=== PATIENT | male | born 1975 | race Caucasian/White ===

== ENCOUNTER 2018-06-05 07:56 | Observation (INO) | payer SELFPAY ==
[2018-06-05] MEDS ORDERED: ASPIRIN 81 MG TABLET, CHEWABLE PO ONE (08:22)
--- NOTE | 2018-06-05 08:38 | ER Document Report ---
ED General - General Mode of Arrival: Ambulatory Information source: Patient TRAVEL OUTSIDE OF THE [place] IN LAST 30 DAYS: No <ARLETH WESLEY - Last Filed: 06/05/18 09:26> <BERTRAM MCPHERSON - Last Filed: 06/05/18 15:17> - General Chief Complaint: Chest Pain Stated Complaint: CHEST PAIN, ARM TINGLING, SHORTNESS OF BREATH Time Seen by Provider: 06/05/18 08:28 Notes: Patient is a 43 year old male with type IIb von Willebrand's disease presents to the emergency department complaining of chest pain with associated symptoms of shortness of breath and left arm tingling onset around 0300 this morning. Patient states the pain is primarily located in the sternal area that radiates into the left side of his chest, left arm and back. Patient describes the pain as a burning, throbbing sensation and further states he has never had pain like this before. Patient states the pain is exacerbated with deep breathing. He also complains of "seeing stars" in his vision. (ARLETH WESLEY) Late history from the patient is that he had an episode of fluttering in his chest and was seen at [facility]. He states this happened a couple of years ago, right after he was seen here for an abscess on his leg. That was actually in 2012, 5 years ago. He reports at that time he was hospitalized, was put inside a machine to look at his heart and had an exercise stress test done. He states that the time his blood pressure shot way up and was in the 250/150 range. He states he was discharged with some blood pressure medications, that he tried but never followed up. I suspect he has been running very high blood pressures now for the last 4-5 years without treatment. He also smokes 1-1/2 packs/day. His blood pressure today when he first came in was 205/128. The patient was not given aspirin, Plavix, or any other antiplatelet type medications due to his history of von Willebrand's type IIb. (BERTRAM MCPHERSON) - Related Data Allergies/Adverse Reactions: aspirin [Aspirin] Allergy (Verified 12/29/12 22:34) Past Medical History - General Information source: Patient - Social History Smoking Status: Current Every Day Smoker Cigarette use (# per day): Yes - 1-1.5 PPD Chew tobacco use (# tins/day): No Smoking Education Provided: No Frequency of alcohol use: Rare Family History: None Past Surgical History: Reports: Hx Oral Surgery - Immunizations Hx Diphtheria, Pertussis, Tetanus Vaccination: Yes <ARLETH WESLEY - Last Filed: 06/05/18 09:26> Review of Systems - Review of Systems Constitutional: No symptoms reported EENT: See HPI Cardiovascular: See HPI, Chest pain Respiratory: See HPI, Hurts to breathe Gastrointestinal: No symptoms reported Genitourinary: No symptoms reported Male Genitourinary: No symptoms reported Musculoskeletal: No symptoms reported Skin: No symptoms reported Hematologic/Lymphatic: No symptoms reported Neurological/Psychological: See HPI, Tingling - left arm -: Yes All other systems reviewed and negative <ARLETH WESLEY - Last Filed: 06/05/18 09:26> Physical Exam <ARLETH WESLEY - Last Filed: 06/05/18 09:26> <BERTRAM MCPHERSON - Last Filed: 06/05/18 15:17> - Vital signs Vitals: Pulse Ox 94 06/05/18 08:00 - Notes Notes: GENERAL: Alert, interacts well, moaning in bed. No acute distress. HEAD: Normocephalic, atraumatic. EYES: Pupils equal, round, and reactive to light. Extraocular movements intact. ENT: Oral mucosa moist, tongue midline. NECK: Full range of motion. Supple. Trachea midline. LUNGS: Right anterior chest wall to palpation, left anterior chest wall to palpation. R > L. Clear to auscultation bilaterally, no wheezes, rales, or rhonchi. No respiratory distress. HEART: Regular rate and rhythm. No murmurs, gallops, or rubs. ABDOMEN: Soft. RUQ tenderness palpation, epigastric more tender to palpation, does not reproduce chest pain radiating into his back. Non-distended. Bowel sounds present in all 4 quadrants. EXTREMITIES: Moves all 4 extremities spontaneously. No edema, radial and dorsalis pedis pulses 2/4 bilaterally. No cyanosis. NEUROLOGICAL: Alert and oriented x3. Normal speech. PSYCH: Normal affect, normal mood. SKIN: Warm, dry, normal turgor. No rashes or lesions noted. (ARLETH WESLEY) Course <ARLETH WESLEY - Last Filed: 06/05/18 09:26> - Laboratory Result Diagrams: 06/05/18 08:37 06/05/18 08:37 - Diagnostic Test Radiology reviewed: Image reviewed, Reports reviewed - Chest x-ray is unremarkable. CTA chest is unremarkable. - EKG Interpretation by Me EKG shows normal: Sinus rhythm, [place], Intervals, QRS Complexes. abnormal: ST-T Waves - ST elevation suggesting early repolarization pattern Rate: Normal - 86 Rhythm: NSR Voltage: Consistant with LVH When compared to previous EKG there are: Previous EKG unavailable - Consults Dr. Serrano Time consulted: 14:55 Consulted provider: will come to ER <BERTRAM MCPHERSON - Last Filed: 06/05/18 15:17> - Re-evaluation Re-evalutation: 06/05/18 08:49 Patient was given 1 sublingual nitroglycerin at 0841, within about 3 minutes he noted that the pain in the back was gone but does continue to have the anterior and substernal chest discomfort. I did lift the back of the bed up to about 45 degrees as he is a quite large person to see if that would help him. It did not really change his discomfort so a second nitroglycerin was given at 0845. The second nitroglycerin gave a little more relief according to the patient. He indicates that it is still present but considerably better than when he first came in. He will have normal saline running now and get Lopressor 5 mg IV. 06/05/18 09:42 A repeat 12-lead done after the above medications, shows that the patient has now inverted the T waves in lead III and seen the inverted T's in aVL have now gone positive. (BERTRAM MCPHERSON) - Vital Signs Vital signs: Temp Pulse Resp BP Pulse Ox 97.7 F 84 18 143/79 H 94 06/05/18 08:03 06/05/18 08:03 06/05/18 14:36 06/05/18 14:36 06/05/18 14:36 - Laboratory Laboratory results interpreted by me: 06/05/18 06/05/18 08:37 08:37 WBC 11.4 H RBC 6.01 H MCH 26.9 L Absolute Neutrophils 8.5 H D-Dimer 0.91 H Critical Care Note - Critical Care Note Total time excluding time spent on procedures (mins): 40 <BERTRAM MCPHERSON - Last Filed: 06/05/18 15:17> Discharge <ARLETH WESLEY - Last Filed: 06/05/18 09:26> - Discharge Admitting Provider: Hospitalist Unit Admitted: IMCU <BERTRAM MCPHERSON - Last Filed: 06/05/18 15:17> - Discharge Clinical Impression: Von Willebrand disease type 2b Chest pain Qualifiers: Chest pain type: unspecified Qualified Code(s): R07.9 - Chest pain, unspecified High blood pressure Qualifiers: Hypertension type: essential hypertension Qualified Code(s): I10 - Essential ( primary) hypertension Condition: Stable Disposition: ADMITTED OBSERVATION Referrals: LOCALMD,NO [NO LOCAL MD] - Follow up as needed Scribe Attestation: 06/05/18 09:25 I personally performed the services described in the documentation, reviewed and edited the documentation which was dictated to the scribe in my presence, and it accurately records my words and actions. (BERTRAM MCPHERSON) Scribe Documentation - Scribe Written by Scribe:: Narendra Jiménez, 06/05/2018 08:48 acting as scribe for :: Wayne <ARLETH WESLEY - Last Filed: 06/05/18 09:26>
[2018-06-05] MEDS ORDERED: ONDANSETRON HCL INJ/PF 4 MG/2 ML SDV IV ONE (08:39)
[2018-06-05] MEDS ORDERED: MORPHINE SULFATE 10 MG/ML INJ IV ONE (08:39)
[2018-06-05] MEDS ORDERED: FAMOTIDINE INJ/PF 20 MG/2 ML SDV IV ONE (08:39)
[2018-06-05] MEDS ORDERED: NORMAL SALINE 1000 ML 1,000 ML IV ONE (08:48)
[2018-06-05] MEDS ORDERED: METOPROLOL TARTRATE PF/INJ 5 MG/5 ML SDV IV ONE ×2 (08:48→10:26)
--- NOTE | 2018-06-05 09:31 | RADIOLOGY REPORT (SQ) ---
EXAM DESCRIPTION: CHEST SINGLE VIEW COMPLETED DATE/TIME: 06/05/2018 8:56 am REASON FOR STUDY: cp COMPARISON: None. EXAM PARAMETERS: NUMBER OF VIEWS: One view. TECHNIQUE: Single frontal radiographic view of the chest acquired. RADIATION DOSE: NA LIMITATIONS: None. FINDINGS: LUNGS AND PLEURA: No opacities, masses or pneumothorax. No pleural effusion. MEDIASTINUM AND HILAR STRUCTURES: No masses. Contour normal. HEART AND VASCULAR STRUCTURES: Heart normal in size. Normal vasculature. BONES: No acute findings. HARDWARE: None in the chest. OTHER: No other significant finding. IMPRESSION: NO ACUTE RADIOGRAPHIC FINDING IN THE CHEST. TECHNICAL DOCUMENTATION: JOB ID: [id number] [employer]- All Rights Reserved Reading location - IP/workstation name: [email or web address]
[2018-06-05] MEDS ORDERED: NITROGLYCERIN 2% OINTMENT 1 GM PACKET TP ONE (09:39)
[2018-06-05 09:45] LABS: ABSOLUTE BASOPHILS # (AUTO) 0.1 10^3/uL (0.0-0.2); ABSOLUTE EOSINOPHILS # (AUTO) 0.3 10^3/uL (0.0-0.6); ABSOLUTE LYMPHOCYTES (AUTO) 1.9 10^3/uL (0.5-4.7); ABSOLUTE MONOCYTES (AUTO) 0.7 10^3/uL (0.1-1.4); ABSOLUTE NEUT (AUTO) 8.5 10^3/uL (1.7-8.2); BASOPHILS % (AUTO) 0.7 % (0-2); EOSINOPHILS % (AUTO) 2.2 % (0-6); HEMOGLOBIN 16.2 g/dL (13.5-17.0); LYMPHOCYTES % (AUTO) 16.8 % (13-45); MEAN CORPUSCULAR HEMOGLOBIN 26.9 pg (27.0-33.4); MEAN CORPUSCULAR VOLUME 82 fl (80-97); MONOCYTES % (AUTO) 6.3 % (3-13); PLATELET COUNT 193 10^3/uL (150-450); RED BLOOD COUNT 6.01 10^6/uL (4.35-5.55); RED CELL DISTRIBUTION WIDTH 13.7 % (11.5-14.0); TOTAL CELLS COUNTED % (AUTO) 100 %; WHITE BLOOD COUNT 11.4 10^3/uL (4.0-10.5)
[2018-06-05 10:04] LABS: ALANINE AMINOTRANSFERASE 54 U/L (21-72); ALBUMIN 4.4 g/dL (3.5-5.0); ALKALINE PHOSPHATASE 62 U/L (38-126); ANION GAP 12 (5-19); ASPARTATE AMINO TRANSFERASE 36 U/L (17-59); BILIRUBIN,DIRECT 0.3 mg/dL (0.0-0.4); BILIRUBIN,TOTAL 0.5 mg/dL (0.2-1.3); BLOOD UREA NITROGEN 11 mg/dL (7-20); CALCIUM 9.7 mg/dL (8.4-10.2); CARBON DIOXIDE 26 mmol/L (22-30); CHLORIDE 104 mmol/L (98-107); CREATINE KINASE 136 U/L (55-170); GLUCOSE 100 mg/dL (75-110); POTASSIUM 4.3 mmol/L (3.6-5.0); SODIUM 142.1 mmol/L (137-145); TOTAL PROTEIN 7.4 g/dL (6.3-8.2)
[2018-06-05 10:16] LABS: CREATINE KINASE MB 1.24 ng/mL (<4.55)
[2018-06-05 10:18] LABS: TROPONIN I < 0.012 ng/mL
--- NOTE | 2018-06-05 14:12 | RADIOLOGY REPORT (SQ) ---
EXAM DESCRIPTION: CTA CHEST COMPLETED DATE/TIME: 06/05/2018 1:50 pm REASON FOR STUDY: Pleuritic chest pain, elevated d-dimer COMPARISON: None. TECHNIQUE: CT scan of the chest performed using helical scanning technique with dynamic intravenous contrast injection. Images reviewed with lung, soft tissue and bone windows. Reconstructed coronal and sagittal MPR images reviewed. Additional 3 dimensional post-processing performed to develop Maximal Intensity Projection images (NH P). All images stored on PACS. All CT scanners at this facility use dose modulation, iterative reconstruction, and/or weight based d osing when appropriate to reduce radiation dose to as low as reasonably achievable (ALARA). [facility]: Dose Right [facility]: CareDose [facility]: Dose Right [facility]: Teradose 4D [facility]: Godengo CONTRAST TYPE AND DOSE: contrast/concentration: Isovue 350.00 mg/ml; Total Contrast Delivered: 79.0 ml; Total Saline Delivered: 90.0 ml Contrast bolus optimized for the pulmonary arteries. Not diagnostic for the aorta. RENAL FUNCTION: GFR > 60. RADIATION DOSE: CT Rad equipment meets quality standard of care and radiation dose reduction techniq ues were employed. CTDIvol: 15.5 - 26.3 mGy. DLP: 592 mGy-cm. . LIMITATIONS: Motion. FINDINGS: LUNGS AND PLEURA: No masses, infiltrates, or pneumothorax. No pleural effusions or pleura l calcifications. AORTA AND GREAT VESSELS: No aneurysm. Contrast bolus not optimized for the aorta. HEART: No pericardial effusion. No significant coronary artery calcifications. PULMONARY ARTERIES: No emboli visualized in the main pulmonary arteries or the segmental branches. HILAR AND MEDIASTINAL STRUCTURES: Small hilar nodes measuring up to about 1 cm. No bulky adenopathy. HARDWARE: None in the chest. UPPER ABDOMEN: No significant findings. Limited exam. THYROID AND OTHER SOFT TISSUES: No masses. No adenopathy. BONES: No acute or significant finding. 3D MIPS: Confirm above findings. OTHER: No other significant finding. IMPRESSION: No PE. No acute findings. COMMENT: Quality ID # [id number]: Final reports with documentation of one or more dose reduction techniques (e.g., Automated exposure control, adjustment of the mA and/or kV according to patient size, use of iterative reconstruction technique) TECHNICAL DOCUMENTATION: JOB ID: [id number] [employer]- All Rights Reserved Reading location - IP/workstation name: [email or web address]
[2018-06-05] MEDS ORDERED: REGADENOSON INJ 0.4 MG/5 ML DISP.SYRIN IV ONE (14:53)
[2018-06-05] MEDS ORDERED: NITROGLYCERIN 0.4 MG/TAB 25 TAB/BOTTLE SL PRN (16:52)
[2018-06-05] MEDS ORDERED: MORPHINE SULFATE 10 MG/ML INJ IV PRN (16:52)
--- NOTE | 2018-06-05 17:02 | PDOC H&P ---
History of Present Illness Admission Date/PCP: 06/05/18 15:43 History of Present Illness: MARK BOYD is a 43 year old male presents to the emergency room due to acute onset of very severe throbbing middle chest pain started 3 AM today and woke him up from sleep. Pain is associated with "seeing stars" and shortness of breath. Also associated with tingling and numbness in his left arm and referred to his back. Pain increases with deep breathing. Pain improved with nitroglycerin and morphine in the emergency room. Apparently the patient was tachycardic and hypertensive and received beta-adriana treatment in the emergency room and now he is normotensive and in sinus rhythm. Patient went on to go to work at 7:00 and continue to work till 8:00 before 1 of his coworkers asking to go to the emergency room since his pain did not improve or subside. In the emergency room he developed a different kind of pain that is located in the left lower chest and was cramping like and this also resolved now. Past Medical History Hematology History Note: Von Willebrand's disease type IIB Past Surgical History Past Surgical History: Reports: None Social History Smoking Status: Current Every Day Smoker Family History Family History: Von Willebrand disease Parental Family History Reviewed: Yes Children Family History Reviewed: Yes Sibling(s) Family History Reviewed.: Yes Medication/Allergy Allergies/Adverse Reactions: aspirin [Aspirin] Allergy (Verified 12/29/12 22:34) Review of Systems All systems: reviewed and no additional remarkable complaints except as stated Physical Exam Vital Signs: Temp Pulse Resp BP Pulse Ox 97.7 F 84 19 156/85 H 94 06/05/18 08:03 06/05/18 08:03 06/05/18 16:31 06/05/18 16:31 06/05/18 16:31 General appearance: PRESENT: no acute distress, cooperative, obese Head exam: PRESENT: atraumatic, normocephalic Eye exam: PRESENT: EOMI, PERRLA. ABSENT: conjunctival injection Mouth exam: PRESENT: moist, neck supple Throat exam: ABSENT: post pharyngeal erythema, tonsillar exudate Neck exam: ABSENT: meningismus, tenderness, tracheostomy Respiratory exam: PRESENT: wheezes. ABSENT: accessory muscle use, crackles Cardiovascular exam: PRESENT: RRR. ABSENT: diastolic murmur, systolic murmur Pulses: PRESENT: normal carotid pulses GI/Abdominal exam: PRESENT: normal bowel sounds, soft. ABSENT: ascites, tenderness Rectal exam: PRESENT: deferred Extremities exam: ABSENT: joint swelling, pedal edema Musculoskeletal exam: ABSENT: deformity, dislocation, tenderness Neurological exam: PRESENT: alert, awake, oriented to person, oriented to place , oriented to time, oriented to situation Psychiatric exam: PRESENT: agitated, anxious Results Impressions: Chest X-Ray 06/05/18 08:22 IMPRESSION: NO ACUTE RADIOGRAPHIC FINDING IN THE CHEST. Chest/Abdomen CTA 06/05/18 13:03 IMPRESSION: No PE. No acute findings. Assessment & Plan - Diagnosis (1) Chest pain Qualifiers: Chest pain type: unspecified Qualified Code(s): R07.9 - Chest pain, unspecified Is this a current diagnosis for this admission?: Yes Plan: Admit for observation to telemetry Check serial troponins and serial EKG He received aspirin in the emergency room Nitroglycerin morphine as needed Check stress test in the morning (2) High blood pressure Qualifiers: Hypertension type: essential hypertension Qualified Code(s): I10 - Essential (primary) hypertension Is this a current diagnosis for this admission?: Yes Plan: Continue to monitor blood pressure (3) Von Willebrand disease type 2b Is this a current diagnosis for this admission?: Yes Plan: No bleeding currently
--- NOTE | 2018-06-05 21:28 | EKG REPORT ---
SEVERITY:- ABNORMAL ECG - SINUS RHYTHM CONSIDER LEFT VENTRICULAR HYPERTROPHY ST ELEV, PROBABLE NORMAL EARLY REPOL PATTERN : Confirmed by: Niki Carrillo MD 05-Jun-2018 21:27:18
[2018-06-06 05:01] LABS: CHOLESTEROL 139.84 mg/dL (0-200); TRIGLYCERIDES 160 mg/dL (<150)
[2018-06-06 05:12] LABS: DIRECT LDL 93 mg/dL (<100)
--- NOTE | 2018-06-06 10:04 | EKG REPORT ---
SEVERITY:- NORMAL ECG - SINUS RHYTHM : Confirmed by: Niki Carrillo MD 06-Jun-2018 10:02:32
--- NOTE | 2018-06-06 10:04 | EKG REPORT ---
SEVERITY:- NORMAL ECG - SINUS RHYTHM : Confirmed by: Niki Carrillo MD 06-Jun-2018 10:02:35
[2018-06-06 14:27] VITALS: BP 170/96
--- NOTE | 2018-06-06 15:18 | PDOC DISCHARGE SUMMARY ---
General - Admit/Disc Date/PCP Admission Date/Primary Care Provider: 06/05/18 15:43 Discharge Date: 06/06/18 - Discharge Diagnosis (1) Chest pain Is this a current diagnosis for this admission?: Yes (2) High blood pressure Is this a current diagnosis for this admission?: Yes (3) Von Willebrand disease type 2b Is this a current diagnosis for this admission?: Yes - Additional Information Discharge Diet: As Tolerated Discharge Activity: Activity As Tolerated Home Medications: No Home Medications 06/05/18 History of Present Illness History of Present Illness: MARK BOYD is a 43 year old male presents to the emergency room due to acute onset of very severe throbbing middle chest pain started 3 AM today and woke him up from sleep. Pain is associated with "seeing stars" and shortness of breath. Also associated with tingling and numbness in his left arm and referred to his back. Pain increases with deep breathing. Pain improved with nitroglycerin and morphine in the emergency room. Apparently the patient was tachycardic and hypertensive and received beta-adriana treatment in the emergency room and now he is normotensive and in sinus rhythm. Patient went on to go to work at 7:00 and continue to work till 8:00 before 1 of his coworkers asking to go to the emergency room since his pain did not improve or subside. In the emergency room he developed a different kind of pain that is located in the left lower chest and was cramping like and this also resolved now. Hospital Course Hospital Course: (1) Chest pain Admitted for observation to telemetry Normal serial troponins and serial EKG He received aspirin in the emergency room Patient ordered nitroglycerin morphine as needed Stress test was negative and was cleared by cardiology for discharge (2) elevated blood pressure readings Need to follow-up with his primary care physician after discharge (3) Von Willebrand disease type 2b No bleeding currently Physical Exam Vital Signs: Temp Pulse Resp BP Pulse Ox 99.5 F 88 16 170/96 H 96 06/06/18 14:11 06/06/18 14:11 06/06/18 14:11 06/06/18 14:11 06/06/18 14:11 Intake & Output 06/05/18 06/06/18 06/07/18 06:59 06:59 06:59 Intake Total 237 450 Output Total 0 Balance 237 450 Weight 334 lb 10.587 oz Results Laboratory Results: 06/06/18 04:33 Triglycerides 160 H Cholesterol 139.84 LDL Cholesterol Direct 93 VLDL Cholesterol 32.0 H HDL Cholesterol 33 L 06/05/18 06/05/18 06/06/18 18:50 22:05 04:33 Troponin I < 0.012 < 0.012 < 0.012 Impressions: Chest X-Ray 06/05/18 08:22 IMPRESSION: NO ACUTE RADIOGRAPHIC FINDING IN THE CHEST. Chest/Abdomen CTA 06/05/18 13:03 IMPRESSION: No PE. No acute findings. Qualifiers - * PATIENT BEING DISCHARGED WITH ANY OF THE FOLLOWING DIAGNOSIS: No
--- NOTE | 2018-06-06 21:07 | DRAGON STRESS TEST REPORT ---
Intravenous Lexiscan Cardiolite stress test using single photon emmision computerized tomography. Date of procedure: 06/06/2018.Ordering Provider: .Patient's status: Inpatient. Indication: Chest pain. Coronary risk factors: Age, hypertension, and tobacco abuse disorder. Resting EKG: Sinus Rhythm. Within Normal Limits Stress EKG: No changes of ischemia. The patient had no chest pain or discomfort, and there were no arrhythmias seen. Reason for termination: Protocol. Conclusions: Normal EKG and hemodynamic response to IV Lexiscan. Nuclear data: At rest the patient was given 15.47 millicuries of technetium 99m sestamibi injected intravenously. As per protocol rest non gated SPECT images were obtained. Subsequently the patient was given intravenous Lexiscan at a dose of 0.4 mg in 5 mL intravenously, followed by flush with normal saline. Subsequently the stress dose of 46.3 millicuries of technetium 99m sestamibi was injected intravenously. As per protocol stress gated images were obtained. Nuclear interpretation: Review of images showed that all segments of the myocardium had normal perfusion at rest, and normal perfusion post stress with IV Lexiscan. All segments of the myocardium had normal motion, contraction, and thickening by gated study. T. I D. ratio was abnormal at 1.32. Visually this is not reliable, and visually the TID ratio is normal. There is no transient ischemic dilatation of the left ventricle. Computer read rest, and stress left ventricular ejection fraction were 65 %, and 57 %, respectively. Conclusion: 1. There is no scintigraphic evidence of Lexiscan induced myocardial ischemia. 2. There is no scintigraphic evidence of myocardial infarction/scar. Recommendations: Aggressive risk factor modification, and treating the underlying co- morbidities. MTDD
== END 2018-06-06 16:39 | disposition home or self-care (01) ==
LOC: ER 07:56 → EH 15:43 → 3W 17:43
PROVIDERS: ADMIT Family Medicine; ATTEND Family Medicine
DX: R07.9 Chest pain, unspecified (principal); I10 Essential (primary) hypertension; D68.0 Von Willebrand disease; R06.02 Shortness of breath; R00.0 Tachycardia, unspecified; R20.2 Paresthesia of skin; F17.210 Nicotine dependence, cigarettes, uncomplicated; R45.1 Restlessness and agitation; H53.9 Unspecified visual disturbance; Z83.2 Family history of diseases of the blood and blood-forming organs and certain disorders involving the immune mechanism
CPT/HCPCS: 93005 ×2; 96376; 99291; 96361; 96374; 96375; 36415 ×2; 82553; 82550; 83690; 85025; 80053; 84484 ×2; 83036; 85379; 80061; 93017; 71045; 78452; 71275; 93010; A9500; J2785; J3490; J2270 ×2; J2405; J7030; S0028; Q9969; G0378

== ENCOUNTER 2018-06-21 11:34 | Emergency (ER) | payer SELFPAY ==
--- NOTE | 2018-06-21 11:57 | ER Document Report ---
ED Cardiac - General Chief Complaint: Chest Pain Stated Complaint: CHEST PAIN Time Seen by Provider: 06/21/18 11:42 Mode of Arrival: Medic Information source: Patient Notes: Patient is a 43-year-old male who presents to the emergency department with chief complaint of dizziness and chest pain that started last night. He reports that the pain is located in the middle of his chest and feels like a throbbing pain. This pain occasionally radiates to both left and right chest wall. He also reports associated left arm numbness and tingling. He has mild nausea but no vomiting. He was recently admitted on 06/05/18 for a chest pain workup. He had negative troponins during that visit and also a normal nuclear stress test. TRAVEL OUTSIDE OF THE [place] IN LAST 30 DAYS: No - Related Data Allergies/Adverse Reactions: aspirin [Aspirin] Allergy (Verified 12/29/12 22:34) Past Medical History - General Information source: Patient - Social History Smoking Status: Current Some Day Smoker Frequency of alcohol use: None Drug Abuse: None Family History: None - Past Medical History Cardiac Medical History: Reports: Hx Hypercholesterolemia, Hx Hypertension Endocrine Medical History: Reports: Hx Diabetes Mellitus Type 2 Renal/ Medical History: Denies: Hx Peritoneal Dialysis Psychiatric Medical History: Reports: Hx Depression Past Surgical History: Reports: Hx Oral Surgery - Immunizations Hx Diphtheria, Pertussis, Tetanus Vaccination: Yes Review of Systems - Review of Systems Cardiovascular: See HPI Respiratory: denies: Cough, Hurts to breathe, Short of breath Gastrointestinal: denies: Abdominal pain, Diarrhea, Nausea, Vomiting Musculoskeletal: Other - Left arm numbness/tinglin and is oriented heg. denies: Back pain Skin: No symptoms reported Hematologic/Lymphatic: No symptoms reported Neurological/Psychological: No symptoms reported Physical Exam - Vital signs Vitals: Resp Pulse Ox 22 H 98 06/21/18 11:51 06/21/18 11:51 - Notes Notes: PHYSICAL EXAMINATION: GENERAL: Well-appearing, well-nourished and in no acute distress. HEAD: Atraumatic, normocephalic. EYES: Pupils equal round and reactive to light, extraocular movements intact, sclera anicteric, conjunctiva are normal. ENT: Nares patent, oropharynx clear without exudates. Moist mucous membranes. NECK: Normal range of motion, supple without lymphadenopathy LUNGS: Breath sounds clear to auscultation bilaterally and equal. No wheezes rales or rhonchi. HEART: Regular rate and rhythm without murmurs ABDOMEN: Soft, nontender, nondistended abdomen. No guarding, no rebound. No masses appreciated. Musculoskeletal: Normal range of motion, no pitting or edema. No cyanosis. Tenderness to palpation to mid sternal area as well as right and left chest wall. NEUROLOGICAL: Cranial nerves grossly intact. Normal speech, normal gait. Normal sensory, motor exams PSYCH: Normal mood, normal affect. SKIN: Warm, Dry, normal turgor, no rashes or lesions noted. Course - Re-evaluation Re-evalutation: Patient's physical examination is unremarkable. Patient's chest pain is r eproducible with palpation to the entire chest wall. CBC, CMP and initial cardiac enzymes are normal. EKG shows a sinus rhythm, rate of 83, normal axis, no ST segment elevations or depressions. This was compared to EKG done on 06/05/18 and is unchanged. Chest x-ray with no cardiomegaly, infiltrates or pneumothorax. Patient's heart score is 3. Patient resting comfortably with no complaints awaiting repeat troponin. Vital signs remained stable, heart rate sinus rhythm in the 80s on the food sampler. Patient has asked a few times for food, we will hold off until we have a second negative troponin. Repeat troponin is also negative. Patient was given a GI cocktail which did resolve his symptoms. Given that patient has had 2- troponins and a recent negative stress test done 2 weeks ago he will be discharged home at this time. He will follow-up with his primary care provider. I did discuss diet with the patient and advised him to stay away from spicy or greasy foods as this may be a contributing factor to some of his pain. He verbalized understanding. - Vital Signs Vital signs: Temp Pulse Resp BP Pulse Ox 98.6 F 19 145/88 H 95 06/21/18 18:07 06/21/18 18:00 06/21/18 18:07 06/21/18 18:00 - Laboratory Result Diagrams: 06/21/18 11:56 06/21/18 11:56 Laboratory results interpreted by me: 06/21/18 06/21/18 11:56 11:56 RBC 6.09 H Chloride 108 H Glucose 120 H - Diagnostic Test Radiology reviewed: Image reviewed, Reports reviewed - EKG Interpretation by Me EKG shows normal: Sinus rhythm Rate: Normal Rhythm: NSR When compared to previous EKG there are: No significant change Discharge - Discharge Clinical Impression: Chest pain Qualifiers: Chest pain type: unspecified Qualified Code(s): R07.9 - Chest pain, unspecified Condition: Stable Disposition: HOME, SELF-CARE Additional Instructions: You were seen today for chest pain. The exact cause of your pain is unclear. However, based on your cardiac enzyme testing, chest x-ray, and EKG it does not appear that it is from an immediately life-threatening cause at this time. Although your testing here is normal is critical that you follow-up with your primary care physician for continued evaluation of this chest pain. I recommended you see your physician within the next 24-48 hours to be evaluated. Please return to emergency department immediately if you have worsening of your chest pain, shortness of breath, vomiting, become unable to exert yourself due to pain or difficulty breathing, you pass out, or have any pain that radiates into your arms, jaw, or back. Please also return if you have any additional symptoms that are concerning to you.
--- NOTE | 2018-06-21 12:16 | RADIOLOGY REPORT (SQ) ---
EXAM DESCRIPTION: CHEST SINGLE VIEW COMPLETED DATE/TIME: 06/21/2018 12:03 pm REASON FOR STUDY: BED 4 CP COMPARISON: None. EXAM PARAMETERS: NUMBER OF VIEWS: One view. TECHNIQUE: Single frontal radiographic view of the chest acquired. RADIATION DOSE: NA LIMITATIONS: None. FINDINGS: LUNGS AND PLEURA: No opacities, masses or pneumothorax. No pleural effusion. MEDIASTINUM AND HILAR STRUCTURES: No masses. Contour normal. HEART AND VASCULAR STRUCTURES: Heart normal in size. Normal vasculature. BONES: No acute findings. HARDWARE: None in the chest. OTHER: No other significant finding. IMPRESSION: NO ACUTE RADIOGRAPHIC FINDING IN THE CHEST. TECHNICAL DOCUMENTATION: JOB ID: [id number]- All Rights Reserved Reading location - IP/workstation name: [email or web address]
[2018-06-21 12:18] LABS: ABSOLUTE BASOPHILS # (AUTO) 0.1 10^3/uL (0.0-0.2); ABSOLUTE EOSINOPHILS # (AUTO) 0.2 10^3/uL (0.0-0.6); ABSOLUTE LYMPHOCYTES (AUTO) 2.1 10^3/uL (0.5-4.7); ABSOLUTE MONOCYTES (AUTO) 0.5 10^3/uL (0.1-1.4); ABSOLUTE NEUT (AUTO) 7.2 10^3/uL (1.7-8.2); BASOPHILS % (AUTO) 0.5 % (0-2); EOSINOPHILS % (AUTO) 2.3 % (0-6); HEMATOCRIT 48.9 % (37.9-51.0); HEMOGLOBIN 16.4 g/dL (13.5-17.0); LYMPHOCYTES % (AUTO) 20.7 % (13-45); MEAN CORPUSCULAR HGB CONC 33.6 g/dL (32.0-36.0); MEAN CORPUSCULAR VOLUME 80 fl (80-97); MONOCYTES % (AUTO) 5.3 % (3-13); PLATELET COUNT 157 10^3/uL (150-450); RED BLOOD COUNT 6.09 10^6/uL (4.35-5.55); RED CELL DISTRIBUTION WIDTH 13.4 % (11.5-14.0); SEGMENTED NEUTROPHILS % (AUTO) 71.2 % (42-78); TOTAL CELLS COUNTED % (AUTO) 100 %; WHITE BLOOD COUNT 10.1 10^3/uL (4.0-10.5)
[2018-06-21 12:37] LABS: ALANINE AMINOTRANSFERASE 49 U/L (21-72); ALBUMIN 3.9 g/dL (3.5-5.0); ALKALINE PHOSPHATASE 59 U/L (38-126); ANION GAP 8 (5-19); ASPARTATE AMINO TRANSFERASE 27 U/L (17-59); BILIRUBIN,DIRECT 0.2 mg/dL (0.0-0.4); BILIRUBIN,TOTAL 0.4 mg/dL (0.2-1.3); BLOOD UREA NITROGEN 10 mg/dL (7-20); CALCIUM 9.4 mg/dL (8.4-10.2); CARBON DIOXIDE 25 mmol/L (22-30); CHLORIDE 108 mmol/L (98-107); CREATINE KINASE 90 U/L (55-170); GLUCOSE 120 mg/dL (75-110); POTASSIUM 4.5 mmol/L (3.6-5.0); SODIUM 141.2 mmol/L (137-145); TOTAL PROTEIN 6.8 g/dL (6.3-8.2)
[2018-06-21 12:49] LABS: CREATINE KINASE MB 1.18 ng/mL (<4.55)
[2018-06-21 12:51] LABS: TROPONIN I < 0.012 ng/mL
--- NOTE | 2018-06-21 12:57 | EKG REPORT ---
SEVERITY:- NORMAL ECG - SINUS RHYTHM : Confirmed by: Garcia Emery 21-Jun-2018 12:57:16
[2018-06-21] MEDS ORDERED: MAG HYDROX/AL HYDROX/SIMETH SUSP 30 ML UDCUP PO ONE (15:01)
[2018-06-21] MEDS ORDERED: LIDOCAINE 2% VISCOUS SOLN 20 ML UDCUP PO ONE (15:01)
[2018-06-21] MEDS ORDERED: METOCLOPRAMIDE HCL ORAL SOLN 10 MG/10 ML UDCUP PO ONE (15:02)
[2018-06-21 18:08] VITALS: BP 145/88
== END 2018-06-21 18:08 | disposition home or self-care (01) ==
LOC: ER 11:34
DX: R07.9 Chest pain, unspecified (principal); R42 Dizziness and giddiness; R20.0 Anesthesia of skin; F17.200 Nicotine dependence, unspecified, uncomplicated; I10 Essential (primary) hypertension; E11.9 Type 2 diabetes mellitus without complications
CPT/HCPCS: 93005; 99285; 36415; 82553; 82550; 85025; 80053; 84484; 71045; 93010; J3490

== ENCOUNTER 2018-09-10 17:52 | Observation (INO) | payer MEDICAID ==
--- NOTE | 2018-09-10 18:22 | ER Document Report ---
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 He also has some shortness of breath. He did not take nitroglycerin because he states he is trying to back down on how much of that he has been taking. He was admitted here in April 2018 for chest pain, had a negative nuclear stress test done. He does have some wheezing congestion when I have him cough. He does have tenderness to palpate the left anterior chest wall and left scapular back muscles. I have greeted and performed a rapid initial assessment of this patient. A comprehensive ED assessment and evaluation of the patient, analysis of test results and completion of the medical decision making process will be conducted by additional ED providers. TRAVEL OUTSIDE OF THE [place] IN LAST 30 DAYS: No - Related Data Allergies/Adverse Reactions: aspirin [Aspirin] Allergy (Verified 12/29/12 22:34) Past Medical History - Social History Chew tobacco use (# tins/day): No Frequency of alcohol use: None Drug Abuse: None Family history: Reviewed & Not Pertinent - Past Medical History Cardiac Medical History: Reports: Hx Hypercholesterolemia, Hx Hypertension Endocrine Medical History: Reports: Hx Diabetes Mellitus Type 2 Renal/ Medical History: Denies: Hx Peritoneal Dialysis Psychiatric Medical History: Reports: Hx Depression Past Surgical History: Reports: Hx Oral Surgery - Immunizations Hx Diphtheria, Pertussis, Tetanus Vaccination: Yes Physical Exam - Vital signs Vitals: Temp Pulse Resp BP Pulse Ox 98.2 F 94 24 H 165/94 H 97 09/10/18 18:06 09/10/18 18:06 09/10/18 18:06 09/10/18 18:06 09/10/18 18:06 Course - Vital Signs Vital signs: Temp Pulse Resp BP Pulse Ox 98.2 F 94 24 H 165/94 H 97 09/10/18 18:06 09/10/18 18:06 09/10/18 18:06 09/10/18 18:06 09/10/18 18:06
--- NOTE | 2018-09-10 18:37 | RADIOLOGY REPORT (SQ) ---
EXAM DESCRIPTION: CHEST 2 VIEWS COMPLETED DATE/TIME: 09/10/2018 6:29 pm REASON FOR STUDY: Chest pain, rhonchi and cough COMPARISON: 06/21/2018 EXAM PARAMETERS: NUMBER OF VIEWS: two views TECHNIQUE: Digital Frontal and Lateral radiographic views of the chest acquired. RADIATION DOSE: NA LIMITATIONS: none FINDINGS: LUNGS AND PLEURA: Low volume examination. MEDIASTINUM AND HILAR STRUCTURES: No masses or contour abnormalities. HEART AND VASCULAR STRUCTURES: Heart normal size. No evidence for failure. BONES: No acute findings. HARDWARE: None in the chest. OTHER: No other significant finding. IMPRESSION: Low volume examination without acute abnormality of the lungs. No focal airspace opacit y. TECHNICAL DOCUMENTATION: JOB ID: [id number] [employer]- All Rights Reserved Reading location - IP/workstation name: [email or web address]
[2018-09-10] MEDS ORDERED: MORPHINE SULFATE 10 MG/ML INJ IV ONE ×2 (19:17→20:32)
[2018-09-10] MEDS ORDERED: ONDANSETRON HCL INJ/PF 4 MG/2 ML SDV IV ONE (19:17)
[2018-09-10] MEDS ORDERED: NITROGLYCERIN 0.4 MG/TAB 25 TAB/BOTTLE SL ONE (19:18)
--- NOTE | 2018-09-10 19:19 | ER Document Report ---
ED General - General Chief Complaint: Chest Pain Stated Complaint: CHEST PAIN Time Seen by Provider: 09/10/18 18:16 Mode of Arrival: Ambulatory Information source: Patient Notes: This is a 43-year-old man that has a history of hypertension, diabetes, von Willebrand's disease, 1 pack/day smoker presents to the emergency room with sharp, squeezing chest pain in the retrosternal area. 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 Patient does state he has had pain like this before. Patient reports adverse reaction to aspirin. TRAVEL OUTSIDE OF THE [place] IN LAST 30 DAYS: No - HPI Onset: Just prior to arrival Onset/Duration: Gradual Quality of pain: Dull Severity: Moderate Pain Level: 2 Associated symptoms: Chest pain. denies: Fever, Shortness of breath Exacerbated by: Denies Relieved by: Denies Similar symptoms previously: Yes Recently seen / treated by doctor: No - Related Data Allergies/Adverse Reactions: aspirin [Aspirin] Allergy (Verified 12/29/12 22:34) Past Medical History - General Information source: Patient - Social History Smoking Status: Current Every Day Smoker Cigarette use (# per day): Yes - 1 pack/day Chew tobacco use (# tins/day): No Frequency of alcohol use: None Drug Abuse: None Lives with: Family Family History: None Patient has suicidal ideation: No Patient has homicidal ideation: No - Past Medical History Cardiac Medical History: Reports: Hx Hypercholesterolemia, Hx Hypertension Endocrine Medical History: Reports: Hx Diabetes Mellitus Type 2 Renal/ Medical History: Denies: Hx Peritoneal Dialysis Psychiatric Medical History: Reports: Hx Depression Past Surgical History: Reports: Hx Oral Surgery - Immunizations Hx Diphtheria, Pertussis, Tetanus Vaccination: Yes Review of Systems - Review of Systems Constitutional: denies: Chills, Fever EENT: No symptoms reported Cardiovascular: See HPI Respiratory: No symptoms reported Gastrointestinal: No symptoms reported Genitourinary: No symptoms reported Male Genitourinary: No symptoms reported Musculoskeletal: No symptoms reported Skin: No symptoms reported Hematologic/Lymphatic: No symptoms reported Neurological/Psychological: No symptoms reported Physical Exam - Vital signs Vitals: Temp Pulse Resp BP Pulse Ox 98.2 F 94 24 H 165/94 H 97 09/10/18 18:06 09/10/18 18:06 09/10/18 18:06 09/10/18 18:06 09/10/18 18:06 Notes: Physical exam: GENERAL: She is alert and oriented x3, he does appear in distress HEAD: Atraumatic, normocephalic. EYES: Pupils equal round and reactive to light, extraocular movements intact, sclera anicteric, conjunctiva are normal. ENT: TMs normal, nares patent, oropharynx clear without exudates. Moist mucous membranes. NECK: Normal range of motion, supple without obvious mass or JVD. LUNGS: Breath sounds clear to auscultation bilaterally and equal. No wheezes rales or rhonchi. HEART: Regular rate and rhythm without murmurs, rubs or gallops. ABDOMEN: Soft, normoactive bowel sounds. No tenderness to palpation. No guarding, no rebound. No masses appreciated. EXTREMITIES: Normal range of motion, no pitting or edema. No clubbing or cyanosis. NEUROLOGICAL: Cranial nerves II through XII grossly intact. Normal speech, moving all extremities. PSYCH: Normal mood, normal affect. SKIN: Warm, Dry, normal turgor, no rashes or lesions noted. Course - Vital Signs Vital signs: Temp Pulse Resp BP Pulse Ox 98.2 F 94 20 150/82 H 96 09/10/18 18:06 09/10/18 18:06 09/10/18 22:01 09/11/18 01:02 09/11/18 01:02 - Laboratory Result Diagrams: 09/10/18 19:34 09/10/18 19:34 Laboratory results interpreted by me: 09/10/18 19:34 WBC 13.6 H RBC 5.98 H MCH 26.6 L RDW 14.1 H Absolute Neutrophils 9.1 H - Diagnostic Test Radiology reviewed: Image reviewed, Reports reviewed - CTA shows no evidence of PE. - EKG Interpretation by Ak Rate: Normal Rhythm: NSR - KG shows sinus rhythm with a ventricular rate of 84, no acute ST-T wave changes Discharge - Discharge Clinical Impression: Chest pain Condition: Stable Disposition: ADMITTED OBSERVATION Admitting Provider: Hospitalist - Dr caban Unit Admitted: Telemetry
[2018-09-10 19:51] LABS: ABSOLUTE BASOPHILS # (AUTO) 0.1 10^3/uL (0.0-0.2); ABSOLUTE EOSINOPHILS # (AUTO) 0.3 10^3/uL (0.0-0.6); ABSOLUTE LYMPHOCYTES (AUTO) 3.2 10^3/uL (0.5-4.7); ABSOLUTE MONOCYTES (AUTO) 0.9 10^3/uL (0.1-1.4); ABSOLUTE NEUT (AUTO) 9.1 10^3/uL (1.7-8.2); EOSINOPHILS % (AUTO) 2.3 % (0-6); HEMATOCRIT 47.7 % (37.9-51.0); HEMOGLOBIN 15.9 g/dL (13.5-17.0); LYMPHOCYTES % (AUTO) 23.3 % (13-45); MEAN CORPUSCULAR HEMOGLOBIN 26.6 pg (27.0-33.4); MEAN CORPUSCULAR HGB CONC 33.3 g/dL (32.0-36.0); MEAN CORPUSCULAR VOLUME 80 fl (80-97); MONOCYTES % (AUTO) 6.4 % (3-13); PLATELET COUNT 181 10^3/uL (150-450); RED BLOOD COUNT 5.98 10^6/uL (4.35-5.55); RED CELL DISTRIBUTION WIDTH 14.1 % (11.5-14.0); TOTAL CELLS COUNTED % (AUTO) 100 %; WHITE BLOOD COUNT 13.6 10^3/uL (4.0-10.5)
[2018-09-10 20:10] LABS: ALANINE AMINOTRANSFERASE 43 U/L (21-72); ALKALINE PHOSPHATASE 61 U/L (38-126); ANION GAP 11 (5-19); ASPARTATE AMINO TRANSFERASE 25 U/L (17-59); BILIRUBIN,DIRECT 0.2 mg/dL (0.0-0.4); BILIRUBIN,TOTAL 0.4 mg/dL (0.2-1.3); BLOOD UREA NITROGEN 10 mg/dL (7-20); CALCIUM 9.5 mg/dL (8.4-10.2); CARBON DIOXIDE 27 mmol/L (22-30); CHLORIDE 104 mmol/L (98-107); CREATINE KINASE 97 U/L (55-170); GLUCOSE 92 mg/dL (75-110); POTASSIUM 4.2 mmol/L (3.6-5.0); SODIUM 141.5 mmol/L (137-145)
[2018-09-10 20:22] LABS: CREATINE KINASE MB 0.74 ng/mL (<4.55)
[2018-09-10 20:24] LABS: TROPONIN I < 0.012 ng/mL
[2018-09-10] MEDS ORDERED: NITROGLYCERIN 2% OINTMENT 1 GM PACKET TP ONE (20:32)
[2018-09-10] MEDS ORDERED: HYDROMORPHONE HCL INJ/PF 2 MG/ML AMPULE IV ONE (22:36)
--- NOTE | 2018-09-10 22:56 | RADIOLOGY REPORT (SQ) ---
EXAM DESCRIPTION: CT CHEST ANGIOGRAPHY WITHOUT THEN WITH IV CONTRAST COMPLETED DATE/TME: 09/10/2018 22:02 CLINICAL HISTORY: 43 years, Male, cp This exam was performed according to our departmental dose-optimization program which includes automated exposure control, adjustment of the mA and/or kVp according to patient size and/or use of iterative reconstruction technique where applicable. FINDINGS: Pulmonary arteries are well opacified with no significant filling defects in the pulmonary arterial tree to suggest acute pulmonary embolism. Aorta is within normal limits. No significant mediastinal, hilar or axillary lymphadenopathy. No pleural or pericardial effusions. Visualized upper abdominal organs are within normal limits. Evaluation of the lung parenchyma demonstrates trachea and major airways to be patent. No suspicious lung nodules or masses. No consolidations to suggest pneumonia. IMPRESSION: No acute pulmonary embolism. No acute pathology.
--- NOTE | 2018-09-10 23:31 | EKG REPORT ---
SEVERITY:- NORMAL ECG - SINUS RHYTHM : Confirmed by: Garcia Emery 10-Sep-2018 23:30:41
--- NOTE | 2018-09-10 23:31 | EKG REPORT ---
SEVERITY:- ABNORMAL ECG - SINUS RHYTHM CONSIDER LEFT VENTRICULAR HYPERTROPHY : Confirmed by: Garcia Emery 10-Sep-2018 23:30:50
[2018-09-11] MEDS ORDERED: MAGNESIUM HYDROXIDE SUSP 30 ML UDCUP PO PRN (00:26)
[2018-09-11] MEDS ORDERED: ZOLPIDEM TARTRATE 5 MG TABLET PO PRN (00:26)
[2018-09-11] MEDS ORDERED: ONDANSETRON HCL INJ/PF 4 MG/2 ML SDV IV PRN (00:26)
[2018-09-11] MEDS ORDERED: MAG HYDROX/AL HYDROX/SIMETH SUSP 30 ML UDCUP PO PRN (00:26)
[2018-09-11] MEDS ORDERED: HYDRALAZINE HCL INJ/PF 20 MG/1 ML SDV IV PRN (00:49)
[2018-09-11] MEDS ORDERED: NITROGLYCERIN 0.4 MG/TAB 25 TAB/BOTTLE SL PRN (00:49)
[2018-09-11] MEDS ORDERED: INSULIN REG, HUMAN 100 UNIT/ML 3 ML VIAL (PYX) SUBCUT PRN (00:49)
[2018-09-11] MEDS ORDERED: NICOTINE 21 MG/24 HR PATCH.TD24 TD PRN (00:49)
[2018-09-11] MEDS ORDERED: ALBUTEROL SULFATE 0.083% NEB 2.5 MG/3 ML AMPUL NEB PRN (00:49)
[2018-09-11] MEDS ORDERED: ACETAMINOPHEN 325 MG TABLET PO PRN (00:49)
[2018-09-11] MEDS ORDERED: DEXTROSE 40% GEL 15 GM TUBE PO PRN ×2 (00:51)
[2018-09-11] MEDS ORDERED: GLUCAGON,HUMAN RECOMB 1 MG INJ IM PRN (00:51)
[2018-09-11] MEDS ORDERED: DEXTROSE 50%-WATER 25 GM/50 ML DISP.SYRIN IV PRN ×2 (00:51)
--- NOTE | 2018-09-11 01:09 | PDOC H&P ---
History of Present Illness Admission Date/PCP: 09/10/18 23:15 Patient complains of: Chest pain History of Present Illness: MARK BOYD is a 43 year old male who presented to the emergency room with acute onset chest pain. Patient admits that he developed chest pain approximately 1630 on the day of admission with sudden onset while he was driving home. He admits that the pain is in the center portion of his chest and radiated directly through to his back. He describes the pain as a constant, sharp, squeezing pressure of severe intensity accompanied only by mild dyspnea/wheezing and remaining present for more than 2 hours until it resolved after he was treated in the emergency room. He further admits that he has had numerous similar episodes over the last several years but never this intense. Additionally he reports a negative stress test last March and a recent visit to the emergency room where he was treated for esophagitis with a GI cocktail which helped minimally but the pain eventually resolved. He further acknowledges that he has been under great deal of emotional stress recently and admits the cardiac associated risk factors of hypertension, diabetes mellitus type 2, morbid obesity, von Willebrand's disease and a 1 pack/day cigarette smoking habit. In the emergency room he was found to have negative cardiac enzymes and no evidence of acute cardiac ischemia or injury on his EKG. His further lab evaluation was essentially unremarkable. Patient was subsequently admitted for observation to the hospital for further evaluation and treatment and will have a cardiology consult with Dr. Carrillo as well as an echocardiogram during his inpatient observation status. Past Medical History Cardiac Medical History: Reports: Hyperlipidema, Hypertension Denies: Atrial Fibrillation, Congestive Heart Failure, Coronary Artery Disease, Myocardial Infarction Pulmonary Medical History: Denies: Asthma, Chronic Obstructive Pulmonary Disease (COPD) EENT Medical History: Reports: Eyes - Wears corrective lenses Denies: Cataracts Neurological Medical History: Denies: Hemorrhagic CVA, Ischemic CVA, Seizures Endocrine Medical History: Reports: Diabetes Mellitus Type 2, Obesity Denies: Diabetes Mellitus Type 1, Hyperthyroidism, Hypothyroidism Renal/ Medical History: Denies: Chronic Kidney Disease, Nephrolithiasis Malignancy Medical History: Reports: None GI Medical History: Denies: Cirrhosis, Hepatitis Musculoskeltal Medical History: Denies: Arthritis, Gout Skin Medical History: Denies: Eczema, Psoriasis Psychiatric Medical History: Reports: Depression Denies: Alcohol Dependency, Substance Abuse, Tobacco Dependency Traumatic Medical History: Reports: None Hematology: Denies: Anemia, Bleeding Tendencies Infectious Medical History: Reports: None Past Surgical History Past Surgical History: Reports: None Social History Information Source: Patient Lives with: Spouse/Significant other Smoking Status: Current Every Day Smoker Frequency of Alcohol Use: None Hx Recreational Drug Use: No Drugs: None Hx Prescription Drug Abuse: No - Advance Directive Resuscitation Status: Full Code Surrogate healthcare decision maker:: Mother Family History Family History: DM, Hypertension, Other - Von Willebrand's disease from father's side Parental Family History Reviewed: Yes Children Family History Reviewed: No Sibling(s) Family History Reviewed.: Yes Medication/Allergy Home Medications: No Home Medications 06/05/18 Allergies/Adverse Reactions: aspirin [Aspirin] Allergy (Verified 12/29/12 22:34) Review of Systems Constitutional: ABSENT: anorexia, chills, fever(s) Eyes: ABSENT: visual disturbances, other - Ocular pain Ears: ABSENT: hearing changes, other - Ear pain Nose, Mouth, and Throat: ABSENT: mouth pain, sore throat Cardiovascular: PRESENT: as per HPI, chest pain, edema - Bilateral feet noted at the end of every day. ABSENT: dyspnea on exertion, orthropnea, palpitations Respiratory: PRESENT: other - Wheezing. ABSENT: cough, dyspnea Gastrointestinal: ABSENT: abdominal pain, constipation, diarrhea, dysphagia, heartburn, nausea, vomiting Genitourinary: ABSENT: dysuria, hematuria Musculoskeletal: ABSENT: joint swelling, muscle weakness Integumentary: ABSENT: pruritus, rash Neurological: ABSENT: confusion, convulsions, focal weakness, memory loss Psychiatric: ABSENT: anxiety, depression Endocrine: ABSENT: cold intolerance, heat intolerance Hematologic/Lymphatic: ABSENT: easy bleeding, easy bruising Physical Exam Vital Signs: Temp Pulse Resp BP Pulse Ox 98.2 F 94 17 164/87 H 94 09/10/18 18:06 09/10/18 18:06 09/10/18 20:30 09/10/18 20:30 09/10/18 20:30 Intake & Output 09/09/18 09/10/18 09/11/18 23:59 23:59 23:59 Weight 152.5 kg General appearance: PRESENT: no acute distress, cooperative, morbidly obese Head exam: PRESENT: normocephalic, other Eye exam: PRESENT: conjunctiva pink. ABSENT: scleral icterus Ear exam: PRESENT: normal external ear exam. ABSENT: bleeding, drainage Mouth exam: PRESENT: dry mucosa, neck supple Neck exam: ABSENT: thyromegaly, tracheal deviation Respiratory exam: PRESENT: symmetrical, unlabored, wheezes - Minimal expiratory wheezes throughout the chest. ABSENT: prolonged expiratory phas Cardiovascular exam: PRESENT: RRR. ABSENT: clicks, gallop, rubs Pulses: PRESENT: normal radial pulses, normal dorsalis pedis pul Vascular exam: PRESENT: normal capillary refill. ABSENT: pallor GI/Abdominal exam: PRESENT: normal bowel sounds, soft Rectal exam: PRESENT: deferred Extremities exam: PRESENT: pedal edema - 1+ bipedal edema, +1 edema - Bilateral pretibial. ABSENT: joint swelling, tenderness Musculoskeletal exam: PRESENT: full ROM, normal inspection. ABSENT: tenderness Neurological exam: PRESENT: alert, awake, oriented to person, oriented to place, oriented to time, oriented to situation, CN II-XII grossly intact. ABSENT: motor sensory deficit Psychiatric exam: PRESENT: appropriate affect, normal mood Skin exam: PRESENT: dry, intact, warm. ABSENT: jaundice, rash, urticaria Results Laboratory Results: 09/10/18 19:34 09/10/18 19:34 09/10/18 09/10/18 19:34 19:34 WBC 13.6 H RBC 5.98 H Hgb 15.9 Hct 47.7 MCV 80 MCH 26.6 L MCHC 33.3 RDW 14.1 H Plt Count 181 Seg Neutrophils % 67.0 Lymphocytes % 23.3 Monocytes % 6.4 Eosinophils % 2.3 Basophils % 1.0 Absolute Neutrophils 9.1 H Absolute Lymphocytes 3.2 Absolute Monocytes 0.9 Absolute Eosinophils 0.3 Absolute Basophils 0.1 Sodium 141.5 Potassium 4.2 Chloride 104 Carbon Dioxide 27 Anion Gap 11 BUN 10 Creatinine 1.00 Est GFR ( Amer) > 60 Est GFR (Non-Af Amer) > 60 Glucose 92 Calcium 9.5 Total Bilirubin 0.4 AST 25 ALT 43 Alkaline Phosphatase 61 Total Protein 7.0 Albumin 4.0 09/10/18 09/10/18 19:34 19:34 Creatine Kinase 97 CK-MB (CK-2) 0.74 Troponin I < 0.012 Impressions: Chest X-Ray 09/10/18 18:21 IMPRESSION: Low volume examination without acute abnormality of the lungs. No focal airspace opacity. Chest/Abdomen CTA 09/10/18 22:02 IMPRESSION: No acute pulmonary embolism. No acute pathology. Assessment and Plan - Diagnosis (1) Chest pain Qualifiers: Chest pain type: unspecified Qualified Code(s): R07.9 - Chest pain, unspecified Is this a current diagnosis for this admission?: Yes Plan: Patient will have serial cardiac enzymes and EKG determinations. A cardiac consult with Dr. Carrillo will be obtained and an echocardiogram will be performed. Further direction in the treatment of the patient's hypertension and chest pain will be anticipated from Dr. Carrillo's input. Patient will be treated with sublingual nitroglycerin should his chest pain return and will also have morphine sulfate 2-4 mg IV every 2 hours as needed for chest pain per sliding scale. (2) Diabetes mellitus type 2 in obese Is this a current diagnosis for this admission?: Yes Plan: Patient will have a hemoglobin A1c performed to evaluate his diabetes status. Additionally he will have before meals and at bedtime blood sugars performed with sliding scale coverage utilizing regular insulin. (3) High blood pressure Qualifiers: Hypertension type: essential hypertension Qualified Code(s): I10 - Essential (primary) hypertension Is this a current diagnosis for this admission?: Yes Plan: Patient's blood pressure will be controlled initially with hydralazine 20 mg IV every 4 hours as needed blood pressure greater than 160/100. Subsequent treatment will be arranged prior to the patient's discharge with input from Dr. Carrillo for the most appropriate therapeutic regiment. (4) Von Willebrand disease type 2b Is this a current diagnosis for this admission?: Yes Plan: The selection of the patient's medications for treatment presence of his von Willebrand's disease. Patient will also have close evaluation for any evidence of bleeding or other complication related to his von Willebrand's disease. (5) Morbid obesity with BMI of 45.0-49.9, adult Is this a current diagnosis for this admission?: Yes Plan: A dietary consult will be obtained for guidance of the patient to a more healthy diet to assist with weight loss, control of hypertension, control of diabetes, control of possible congestive heart failure and improving overall quality of life. (6) Tobacco use disorder, severe, dependence Is this a current diagnosis for this admission?: Yes Plan: Smoking cessation is advised and counseled briefly. A nicotine patch is available for the patient's use is desired. - Time Time Spent with patient: 35 or more minutes Smoking Cessation Education: 3 to 10 minutes Medications reviewed and adjusted accordingly: No - No home meds Anticipated discharge: Home Within: within 24 hours - Inpatient Certification Based on my medical assessment, after consideration of the patient's comorbidities, presenting symptoms, or acuity I expect that the services needed warrant INPATIENT care.: No I certify that my determination is in accordance with my understanding of Medicare's requirements for reasonable and necessary INPATIENT services [42 CFR 412.3e].: No Medical Necessity: Significant Comorbidiites Make Outpatient Treatment Too Risky, Need For Continuous Telemetry Monitoring, Risk of Complication if Not Cared For in Hospital
[2018-09-11] MEDS: MORPHINE SULFATE 10 MG/ML INJ IV PRN ×6 (02:02→19:47)
[2018-09-11 02:08] LABS: CREATINE KINASE MB 0.77 ng/mL (<4.55); TROPONIN I 0.013 ng/mL
[2018-09-11 07:59] LABS: HEMOGLOBIN 15.1 g/dL (13.5-17.0); MEAN CORPUSCULAR HEMOGLOBIN 26.7 pg (27.0-33.4); MEAN CORPUSCULAR HGB CONC 33.6 g/dL (32.0-36.0); MEAN CORPUSCULAR VOLUME 80 fl (80-97); PLATELET COUNT 118 10^3/uL (150-450); RED BLOOD COUNT 5.66 10^6/uL (4.35-5.55); RED CELL DISTRIBUTION WIDTH 14.3 % (11.5-14.0); WHITE BLOOD COUNT 12.8 10^3/uL (4.0-10.5)
[2018-09-11 08:04] LABS: CHOLESTEROL 110.37 mg/dL (0-200); TRIGLYCERIDES 121 mg/dL (<150)
[2018-09-11 08:05] LABS: ANION GAP 12 (5-19); BLOOD UREA NITROGEN 11 mg/dL (7-20); CARBON DIOXIDE 24 mmol/L (22-30); CHLORIDE 104 mmol/L (98-107); CREATINE KINASE 75 U/L (55-170); GLUCOSE 100 mg/dL (75-110); POTASSIUM 3.9 mmol/L (3.6-5.0); SODIUM 139.5 mmol/L (137-145)
[2018-09-11 08:16] LABS: DIRECT LDL 61 mg/dL (<100)
[2018-09-11 08:17] LABS: CREATINE KINASE MB 0.86 ng/mL (<4.55)
[2018-09-11 08:24] LABS: TROPONIN I < 0.012 ng/mL
[2018-09-11] MEDS: FAMOTIDINE 20 MG TABLET PO SCH ×2 (12:03→21:21)
[2018-09-11] MEDS: DOCUSATE SODIUM 100 MG CAPSULE PO SCH ×2 (12:03→17:40)
--- NOTE | 2018-09-11 12:03 | RADIOLOGY REPORT (SQ) ---
EXAM DESCRIPTION: BARIUM SWALLOW ESOPHAGUS COMPLETED DATE/TIME: 09/11/2018 11:33 am REASON FOR STUDY: Chest pain and dysphagia COMPARISON: CT ANGIO CHEST 09/10/2018 TECHNIQUE: Under fluoroscopic guidance, patient ingested effervescent granules followed by thick and thin barium. Fluoroscopic spot images and routine radiographic images acquired and stored on PACS. 12 MM BARIUM TABLET GIVEN: Yes. No significant delay in passage. LIMITATIONS: None. FLUOROSCOPY TIME: FLUORO TIME: 20 seconds 5 series of digital radiographic images saved to PACS. FINDINGS: NEUROMUSCULAR COORDINATION OF SWALLOW: Normal. No aspiration. ESOPHAGEAL MOTILITY: Normal peristalsis. No esophageal spasm. ESOPHAGEAL MUCOSA: Normal mucosa without masses or ulceration. GASTRO-ESOPHAGEAL JUNCTION: Tiny sliding hiatal hernia without reflux. No Schatzki's ring NON-GI TRACT STRUCTURES: No significant finding. OTHER: No other significant finding. IMPRESSION: Tiny sliding hiatal hernia without reflux. COMMENT: Quality ID [id number]: Final reports for procedures using fluoroscopy that document radiation exp osure indices, or exposure time and number of fluorographic images (if radiation exposure indices are not available) TECHNICAL DOCUMENTATION: JOB ID: [id number] [employer]- All Rights Reserved Reading location - IP/workstation name: [email or web address]
[2018-09-11 14:45] LABS: CREATINE KINASE MB 0.89 ng/mL (<4.55)
[2018-09-11 14:49] LABS: TROPONIN I < 0.012 ng/mL
--- NOTE | 2018-09-11 17:16 | PDOC PROGRESS REPORT ---
Subjective Progress Note for:: 09/11/18 Subjective:: 43 y.o.M with a PMH of HTN, HLD, DM and morbid obesity. He was admitted to the hospitalist service, with cardiology consulting, for chest pain. Patient was seen this morning on rounds, he is resting comfortably in bed with family at the bedside. He endorses left anterior chest wall pain, reproducible with palpation. Patient states this pain has been going on "for years."He finally took the advice of his "and came to the emergency department to get checked out." Lungs clear to auscultation. S1-S2. Palpable pulses in the upper and lower extremities. Trace edema in the lower extremities. Due to morbid obesity, difficult to assess for JVD. Patient underwent a barium swallow earlier this morning, results currently pending. Awaiting echocardiogram. Reason For Visit: CHEST PAIN Physical Exam Vital Signs: Temp Pulse Resp BP Pulse Ox 98.1 F 91 20 168/89 H 91 L 09/11/18 15:33 09/11/18 15:33 09/11/18 15:33 09/11/18 15:33 09/11/18 15:33 Intake & Output 09/10/18 09/11/18 09/12/18 06:59 06:59 06:59 Intake Total 473 Output Total 0 Balance 473 Weight 134.5 kg General appearance: PRESENT: morbidly obese Eye exam: PRESENT: conjunctiva pink, PERRLA Mouth exam: PRESENT: moist, tongue midline Teeth exam: PRESENT: poor dentation Neck exam: PRESENT: full ROM Respiratory exam: PRESENT: clear to auscultation andria, symmetrical, unlabored, other - Chest wall tender to palpation Cardiovascular exam: PRESENT: RRR. ABSENT: diastolic murmur, systolic murmur Pulses: PRESENT: normal radial pulses, normal dorsalis pedis pul Vascular exam: PRESENT: normal capillary refill GI/Abdominal exam: PRESENT: soft, other - Rotund. Morbidly obese.. ABSENT: tenderness Rectal exam: PRESENT: deferred Extremities exam: PRESENT: full ROM, pedal edema - Trace pedal edema Musculoskeletal exam: PRESENT: ambulatory, full ROM, normal inspection Neurological exam: PRESENT: alert, awake, oriented to person, oriented to place, oriented to time, oriented to situation Psychiatric exam: PRESENT: appropriate affect Skin exam: PRESENT: dry, intact, normal color Results Laboratory Results: 09/11/18 07:35 09/11/18 07:35 09/10/18 09/10/18 09/11/18 19:34 19:34 07:35 WBC 13.6 H 12.8 H RBC 5.98 H 5.66 H Hgb 15.9 15.1 Hct 47.7 45.0 MCV 80 80 MCH 26.6 L 26.7 L MCHC 33.3 33.6 RDW 14.1 H 14.3 H Plt Count 181 118 L Seg Neutrophils % 67.0 Lymphocytes % 23.3 Monocytes % 6.4 Eosinophils % 2.3 Basophils % 1.0 Absolute Neutrophils 9.1 H Absolute Lymphocytes 3.2 Absolute Monocytes 0.9 Absolute Eosinophils 0.3 Absolute Basophils 0.1 Sodium 141.5 Potassium 4.2 Chloride 104 Carbon Dioxide 27 Anion Gap 11 BUN 10 Creatinine 1.00 Est GFR ( Amer) > 60 Est GFR (Non-Af Amer) > 60 Glucose 92 Calcium 9.5 Magnesium Total Bilirubin 0.4 AST 25 ALT 43 Alkaline Phosphatase 61 Total Protein 7.0 Albumin 4.0 Triglycerides Cholesterol LDL Cholesterol Direct VLDL Cholesterol HDL Cholesterol TSH 09/11/18 09/11/18 09/11/18 07:35 07:35 07:35 WBC RBC Hgb Hct MCV MCH MCHC RDW Plt Count Seg Neutrophils % Lymphocytes % Monocytes % Eosinophils % Basophils % Absolute Neutrophils Absolute Lymphocytes Absolute Monocytes Absolute Eosinophils Absolute Basophils Sodium 139.5 Potassium 3.9 Chloride 104 Carbon Dioxide 24 Anion Gap 12 BUN 11 Creatinine 1.04 Est GFR ( Amer) > 60 Est GFR (Non-Af Amer) > 60 Glucose 100 Calcium 9.0 Magnesium 2.0 Total Bilirubin AST ALT Alkaline Phosphatase Total Protein Albumin Triglycerides 121 Cholesterol 110.37 LDL Cholesterol Direct 61 VLDL Cholesterol 24.0 HDL Cholesterol 36 L TSH 3.75 09/10/18 09/10/18 09/11/18 19:34 19:34 01:30 Creatine Kinase 97 84 CK-MB (CK-2) 0.74 Troponin I < 0.012 09/11/18 09/11/18 09/11/18 01:30 07:35 07:35 Creatine Kinase 75 CK-MB (CK-2) 0.77 0.86 Troponin I 0.013 < 0.012 09/11/18 09/11/18 13:43 13:43 Creatine Kinase 77 CK-MB (CK-2) 0.89 Troponin I < 0.012 Impressions: Chest X-Ray 09/10/18 18:21 IMPRESSION: Low volume examination without acute abnormality of the lungs. No focal airspace opacity. Chest/Abdomen CTA 09/10/18 22:02 IMPRESSION: No acute pulmonary embolism. No acute pathology. Esophagus X-Ray 09/11/18 00:00 IMPRESSION: Tiny sliding hiatal hernia without reflux. Status: Imported from PACS Assessment and Plan - Diagnosis (1) Chest pain Qualifiers: Chest pain type: unspecified Qualified Code(s): R07.9 - Chest pain, unspecified Is this a current diagnosis for this admission?: Yes Plan: Persistent EKG demonstrates NSR, possible LVH, no ischemia or infarction CXR demonstrates cardiomegaly, no other cardiopulmonary pathology Serial cardiac enzymes WNL, no longer trending PRN sublingual nitroglycerin and IV morphine for chest pain Echocardiogram pending Cardiology consulted, recommend initiating daily Imdur Pending barium swallow to determine if chest pain is the result of GERD/reflux/ aspiration (2) Diabetes mellitus type 2 in obese Is this a current diagnosis for this admission?: Yes Plan: Accu-Cheks AC at bedtime Hgb A1c 6.3% Humalog sliding scale insulin Cardiac/diabetic diet (3) Morbid obesity with BMI of 45.0-49.9, adult Is this a current diagnosis for this admission?: Yes Plan: Weight management via diet control (4) High blood pressure Qualifiers: Hypertension type: essential hypertension Qualified Code(s): I10 - Essential (primary) hypertension Is this a current diagnosis for this admission?: Yes Plan: PMH HTN PRN IV hydralazine for SBP greater than 160 Continue home dose amlodipine - Time Time Spent with patient: 15-24 minutes Medications reviewed and adjusted accordingly: Yes Anticipated discharge: Home Within: within 24 hours - Inpatient Certification Based on my medical assessment, after consideration of the patient's comorbidities, presenting symptoms, or acuity I expect that the services needed warrant INPATIENT care.: Yes I certify that my determination is in accordance with my understanding of Medicare's requirements for reasonable and necessary INPATIENT services [42 CFR 412.3e].: Yes Medical Necessity: Risk of Complication if Not Cared For in Hospital
[2018-09-11] MEDS: ISOSORBIDE MONONITRATE 30 MG TAB.ER.24H PO SCH (17:40)
[2018-09-11] MEDS: AMLODIPINE BESYLATE 10 MG TABLET PO SCH (17:40)
[2018-09-11] MEDS ORDERED: ISOSORBIDE MONONITRATE 60 MG TAB.ER.24H PO SCH (18:00)
--- NOTE | 2018-09-11 20:57 | XCELERA REPORT ---
[address] [address] Transthoracic Echocardiogram Report Name: MARK BOYD Age: 43 yrs Gender: Male : 1975 Patient Status: Inpatient Patient Location: [address] [place], [place] [id number] Study Date: 09/11/2018 01:31 PM Height: 71 in Weight: 336 lb BSA: 2.6 m2 Procedure: A two-dimensional transthoracic echocardiogram with color flow Doppler was performed. Study Quality: Fair. Reason For Study: Chest pain, cardiomegaly History: CHEST PAIN / CARDIOMEGALY. Ordering Physician: MARK THORNTON Performed By: Lary Fernández Interpretation Summary The left ventricle is normal in size. There is mild concentric left ventricular hypertrophy. The left ventricular ejection fraction is within normal limits. LV EF is 65% Doppler measurements suggest impaired left ventricular relaxation, which is associated with grade I/IV or mild diastolic dysfunction The left ventricular wall motion is normal. There is no thrombus. The right ventricle is grossly normal size. The right ventricle is not well visualized secondary to technical limitations The right atrium is normal. The left atrial size is normal. There is no evidence of mitral valve prolapse. There is no vegetation seen on the mitral valve. There is no mitral valve stenosis. There is no mitral regurgitation noted. There is no aortic valvular vegetation. There is no aortic valve stenosis There is no LVOT obstruction. No aortic regurgitation is present. There is no tricuspid stenosis. There is a trace to mild amount of tricuspid regurgitation There is mild pulmonary hypertension by echo RVSP is 36 to 41 mm of Hg , with RA mean of 5 to 10. There is no pulmonic valvular stenosis. There is no pulmonic valvular regurgitation. The inferior vena cava appeared normal and decreased > 50% with respiration (RAP 5-10 mmHg) There is no pericardial effusion. MMode/2D Measurements & Calculations RVDd: 3.1 cm LVIDd: 4.6 cm FS: 35.2 % Ao root diam: 3.1 cm IVSd: 1.3 cm LVIDs: 3.0 cm EDV(Teich): 95.8 ml Ao root area: 7.5 cm2 LVPWd: 1.2 cm ESV(Teich): 33.9 ml LA dimension: 3.5 cm EF(Teich): 64.6 % Doppler Measurements & Calculations MV E max ike: MV P1/2t max ike: Ao V2 max: LV V1 max P.7 cm/sec 103.2 cm/sec 192.4 cm/sec 10.6 mmHg MV A max ike: MV P1/2t: 70.4 msec Ao max PG: LV V1 max: 109.1 cm/sec MVA(P1/2t): 3.1 cm2 14.8 mmHg 162.9 cm/sec MV E/A: 0.95 MV dec slope: 428.9 cm/sec2 MV dec time: 0.25 sec PA V2 max: TR max ike: MV P1/2t-pr_phl: 105.1 cm/sec 278.3 cm/sec 70.4 msec PA max P.4 mmHgTR max P.0 mmHg Left Ventricle The left ventricle is normal in size. There is mild concentric left ventricular hypertrophy. The left ventricular ejection fraction is within normal limits. LV EF is 65%. Doppler measurements suggest impaired left ventricular relaxation, which is associated with grade I/IV or mild diastolic dysfunction. The left ventricular wall motion is normal. There is no thrombus. Right Ventricle The right ventricle is grossly normal size. The right ventricle is not well visualized secondary to technical limitations. Atria The right atrium is normal. The left atrial size is normal. Mitral Valve There is no evidence of mitral valve prolapse. There is no vegetation seen on the mitral valve. There is no mitral valve stenosis. There is no mitral regurgitation noted. Aortic Valve There is no aortic valvular vegetation. There is no aortic valve stenosis. There is no LVOT obstruction. No aortic regurgitation is present. Tricuspid Valve There is no tricuspid stenosis. There is a trace to mild amount of tricuspid regurgitation. There is mild pulmonary hypertension by echo. RVSP is 36 to 41 mm of Hg , with RA mean of 5 to 10. Pulmonic Valve There is no pulmonic valvular stenosis. There is no pulmonic valvular regurgitation. Great Vessels The aortic root is normal size. The inferior vena cava appeared normal and decreased > 50% with respiration (RAP 5-10 mmHg). Effusions There is no pericardial effusion. : MARK THORNTON > Niki Carrillo
[2018-09-12] MEDS: MORPHINE SULFATE 10 MG/ML INJ IV PRN (05:16)
[2018-09-12] MEDS: DOCUSATE SODIUM 100 MG CAPSULE PO SCH (09:40)
[2018-09-12] MEDS: FAMOTIDINE 20 MG TABLET PO SCH (09:40)
[2018-09-12] MEDS: ISOSORBIDE MONONITRATE 30 MG TAB.ER.24H PO SCH (09:40)
[2018-09-12] MEDS: AMLODIPINE BESYLATE 10 MG TABLET PO SCH (09:40)
[2018-09-12 10:18] VITALS: BP 125/76
--- NOTE | 2018-09-12 22:57 | Progress Note ---
Provider Note Provider Note: CARDIOLOGY PROGRESS NOTE by Dr. Niki Carrillo on 09/12/2018. SUBJECTIVE: The patient has no further chest pain. There is no shortness of breath. There is no PND orthopnea. There is no arrhythmia seen on the monitor. There is no leg edema. There is no TIA CVA symptoms. PHYSICAL EXAMINATION: The patient is morbidly obese. At present well-groomed and in no acute distress. Selected Entries 09/12/18 09/12/18 09/12/18 07:41 10:02 10:16 Temperature 97.8 F Pulse Rate 74 Respiratory 16 Rate Blood Pressure 125/76 [Left Upper Arm ] O2 Sat by Pulse 94 Oximetry Fraction of 21 Inspired Oxygen (FIO2) Oxygen Delivery Room Air Method HEAD: Atraumatic, normocephalic. EYES: Pupils equal round and reactive to light, extraocular movements intact, sclera anicteric, conjunctiva are normal. ENT: TMs normal, nares patent, oropharynx clear without exudates. Moist mucous membranes. NECK: Normal range of motion, supple without lymphadenopathy or JVD. Carotids are equal there is no bruits. There is no thyromegaly. There is no accessory muscles of respiration in use. Trachea central LUNGS: Breath sounds clear to auscultation bilaterally and equal. No wheezes rales or rhonchi. On palpation there is chest wall tenderness in the lower sternal area on the left front of the chest, reproducing the patient's symptoms.. HEART: S1-S2 is heard. S1 is of normal intensity. There is no S3 gallop. There is no S4 gallop. There is systolic murmur left sternal border and apex without radiation. There is no rub.. ABDOMEN: Soft, nontender, normoactive bowel sounds. There is no hepatosplenic megaly no guarding, no rebound. No masses appreciated. EXTREMITIES: Normal range of motion, no pitting or edema. No clubbing or cyanosis. Femorals are well felt. There is no femoral bruits. Leg pulses are well felt. There is no DVT or cellulitis. There is no calf tenderness NEUROLOGICAL: Cranial nerves II through XII grossly intact. Normal speech, normal gait. The patient is awake alert oriented x3 with no focal deficits. PSYCH: Normal mood, normal affect. The patient judgment and insight are intact SKIN: Warm, Dry, normal turgor, no rashes or lesions noted. There is no petechia or ecchymosis. 09/12/18 07:39 POC Glucose 107 Impression/RECOMMENDATION: 1. Chest Wall Pain: Clearly Noncardiac. Patient Reassured. This is a visual x-ray excludes is esophageal spasm, and tertiary contractions/dysmotility of the esophagus. The chest pain is resolved. 2. Multiple risk factors for CAD, suggest age, hypertension, and hyperlipidemia, and tobacco abuse disorder. In view of the patient not being able to stay on aspirin would recommend adding a oral nitroglycerin preparation. Continue amlodipine. 3. Hypertension: Recommend adding an OTIS inhibitor, which will also be protective to his kidneys in view of his diabetes. Patient blood pressure is very well controlled. 4. Diabetes mellitus type 2 [id number]: Continue metformin. Monitor patient's blood sugar. 5. Hyperlipidemia: Continue statin. 6. Von Willebrand's disease: At present seems to be stable. No bleeding complications. Avoid aspirin, and other antiplatelet/anticoagulants. 7. Morbid obesity: The patient will benefit from a diet and exercise program to lose weight. 8. Tobacco abuse: Tobacco cessation counseling given. 9. Symptoms suggestive of sleep apnea: Recommend a sleep study to be done as an outpatient. 10. ANXIETY: The patient does appear to be anxious. Consider adding anti- anxiolytic medication. Medications reviewed. Medications adjustment recommendations made. Management plan discussed with the attending physician on the case. The patient's cardiac status stable. Would recommend discharging the patient on the above-mentioned medications as suggested/recommended by me. The patient has been encouraged to follow-up with me in the office. The patient also has been encouraged to have a sleep study done. Medical decision making I was of moderate complexity. 40 minutes spent on this patient with more than 50% time spent in direct patient care. The patient has my cell phone number to call me he has any problems.
--- NOTE | 2018-09-12 22:59 | PDOC CONSULTATION ---
Consultation-Blank Consultation: CARDIOLOGY CONSULTATION by Dr. Niki Duckworth on 09/11/2018. Patient seen at 3:30 PM. 60 minutes spent on this patient more than 50% of time spent in direct patient care. REASON FOR CONSULTATION: Chest pain. HISTORY PRESENT ILLNESS.: Patient is a 43-year-old morbidly obese male, with known history of hypertension, diabetes mellitus hyperlipidemia, and von Willebrand's disease, who has had multiple admissions for noncardiac chest pain. The patient states that while he was driving he had sudden onset of squeezing pain which later turned into a sharp continuous pain in the lower front of the chest and lower sternal area. This actually was reproducible by pressing on the chest. He also states it was associated with shortness of breath and some wheezing. He also states it increased when he took a deep breath, but was not pleuritic. There is no cough or sputum production. The patient denies any PND orthopnea. Denies any palpitations, near-syncope or syncope. He denies any history of symptoms suggestive of GERD. Of note in his previous admissions he did get some relief with GI cocktail, but at that time was diagnosed with possible esophagitis. At that time esophagitis was supposed to be the culprit for the patient's chest pain. Although the patient denies a history of anxiety he does appear to be anxious. He has also symptoms suggestive of sleep apnea. The patient had a Lexiscan Cardiolite stress test on 06/05/2018 for chest pains, and this was negative for ischemia or myocardial infarction. PAST MEDICAL HISTORY: Positive for hypertension. He states that he is a diabetic, [id number] on metformin. He has von Willebrand's disease. There is no prior history of myocardial infarction. He has had multiple admissions for chest pain. He has no history of congestive heart failure. He has symptoms of sleep apnea, but has not had a sleep study done. He is morbidly obese. He also states he has hyperlipidemia. Past SURGICAL HISTORY: Only surgery he has had is presumed to being pulled. Social HISTORY: The patient is a smoker. He has no EtOH abuse. ALLERGY: He cannot take aspirin due to his von Willebrand's disease. No other known drug allergies. DISPOSITION: The patient is a full code. His mother is a surrogate healthcare decision maker. FAMILY HISTORY: His children have von Willebrand's disease. There is no history of coronary artery disease in the family. REVIEW OF SYSTEMS:ONSTITUTIONAL: The patient denies any fever chills or rigors. He complains of generalized fatigue and generalized weakness. HEAD: Denies headaches or head injury. EYES: There is no amblyopia diplopia, and no amaurosis fugax. EARS: No hearing loss, no tinnitus or vertigo. NOSE: No history of hayfever, no nosebleeds, and no nasal polyps. MOUTH: No altered taste sensation, no ulcers in the mouth and no bleeding from the gums. THROAT: No odynophagia or dysphagia, no recurrent sore throats. SKIN: There is no pruritus no no elevation discoloration of the skin, and no eczema. LUNGS: No history of asthma COPD, but states with the chest pain he has been having some wheezing and shortness of breath.. Treated and cured as per patient. No history of sleep apnea. No history of pulmonary embolism. No pleuritic chest pain no hemoptysis. No wheezing or cough or sputum production. HEART: He has no history of CAD, IN or anginal symptoms, and no history of hypertension hyperlipidemia. The patient's chest pain symptoms are diagnostic of chest wall pain, which is reproducible by pressing on the chest and with movements of the left pectoral muscle. He denies palpitations or syncope. There is no history of congenital heart disease or rheumatic heart disease. GI: No history of fatty food intolerance no abdominal pain, no cirrhosis. No GI bleed. No altered bowel movements. ENDOCRINE: He has a history of diabetes mellitus type 2 non -insulin-dependent. No history of thyroid disease. No history of polydipsia polyuria, no history of heat or cold intolerance. MUSCULOSKELETAL: No history of arthritis, and no history of collagen vascular disease. RENAL: No symptoms of enlarged prostate. No history of chronic kidney disease. No symptoms of UTI. No history of hematuria pyuria or dysuria. History of solid mass in the right cortex of the right kidney diagnosed by CAT scan in 02/07. METABOLIC: History of morbid obesity present and history of hyperlipidemia. No history of gout. 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 No history of migraines or seizures. No history of gait imbalance. PSYCHIATRIC: No history of anxiety or depression. By the patient in my clinical opinion does have symptoms of anxiety, which is not being treated. No history of suicidal ideation or homicidal ideation. VASCULAR: No history of calf or buttock claudication, no history of DVT. HEMATOLOGICAL: No history of bleeding diathesis or or clotting disorders, and no history of anemia. PHYSICAL EXAMINATION: The patient is morbidly obese. In no acute distress. He is well-groomed 09/11/18 09/11/18 07:29 15:33 Temperature 97.7 F 98.1 F Temperature Oral Oral Source Pulse Rate 71 91 Respiratory 18 20 Rate Blood Pressure 132/67 H 168/89 H Blood Pressure 88 115 Mean BP Location Left Arm Left Arm BP Position Supine Supine O2 Sat by Pulse 93 91 L Oximetry Oxygen Delivery Room Air Room Air Method HEAD: Atraumatic, normocephalic. EYES: Pupils equal round and reactive to light, extraocular movements intact, sclera anicteric, conjunctiva are normal. ENT: TMs normal, nares patent, oropharynx clear without exudates. Moist mucous membranes. NECK: Normal range of motion, supple without lymphadenopathy or JVD. Carotids are equal there is no bruits. There is no thyromegaly. There is no accessory muscles of respiration in use. Trachea central LUNGS: Breath sounds clear to auscultation bilaterally and equal. No wheezes rales or rhonchi. On palpation there is chest wall tenderness in the lower sternal area on the left front of the chest, reproducing the patient's symptoms.. HEART: S1-S2 is heard. S1 is of normal intensity. There is no S3 gallop. There is no S4 gallop. There is systolic murmur left sternal border and apex without radiation. There is no rub.. ABDOMEN: Soft, nontender, normoactive bowel sounds. There is no hepatosplenic megaly no guarding, no rebound. No masses appreciated. EXTREMITIES: Normal range of motion, no pitting or edema. No clubbing or cyanosis. Femorals are well felt. There is no femoral bruits. Leg pulses are well felt. There is no DVT or cellulitis. There is no calf tenderness NEUROLOGICAL: Cranial nerves II through XII grossly intact. Normal speech, normal gait. The patient is awake alert oriented x3 with no focal deficits. PSYCH: Normal mood, normal affect. The patient judgment and insight are intact SKIN: Warm, Dry, normal turgor, no rashes or lesions noted. There is no petechia or ecchymosis. Current Medications Generic Name Dose Route Start Last Admin Trade Name Freq PRN Reason Stop Dose Admin Acetaminophen 650 mg 09/11/18 00:49 Tylenol 325 Mg Tablet PO 10/11/18 00:48 Q4HP PRN For headache, pain or fever Al Hydrox/Mg Hydrox/Simethicone 30 ml 09/11/18 00:26 Maalox Plus Susp 30 Udcup PO 10/11/18 00:25 Q6HP PRN HEARTBURN Albuterol 2.5 mg 09/11/18 00:49 09/11/18 09:19 Ventolin 0.083% Neb 2.5 Mg/3 Ml Ampul NEB 10/11/18 00:48 2.5 mg RTQ1HP PRN Administration SHORTNESS OF BREATH Amlodipine Besylate 10 mg 09/11/18 18:00 09/11/18 17:40 Norvasc 10 Mg Tablet PO 10/11/18 17:59 10 mg DAILY ERIKA Administration Dextrose 25 gm 09/11/18 00:51 Dextrose Inj 50% Syringe (25 Gm/50 Ml) IV 10/11/18 00:50 PRN PRN PER PROTOCOL Protocol Dextrose 12.5 gm 09/11/18 00:51 Dextrose Inj 50% Syringe (25 Gm/50 Ml) IV 10/11/18 00:50 PRN PRN FOR BG 50-69 IN ALERT PATIENT Protocol Docusate Sodium 100 mg 09/11/18 10:00 09/11/18 17:40 Colace 100 Mg Capsule PO 10/11/18 09:59 100 mg BID ERIKA Administration Famotidine 20 mg 09/11/18 10:00 09/11/18 21:21 Pepcid 20 Mg Tablet PO 10/11/18 09:59 20 mg Q12 ERIKA Administration Glucagon 1 mg 09/11/18 00:51 Glucagen Inj 1 Mg Vial IM 10/11/18 00:50 PRN PRN Evaluate for BG < 70 Protocol Glucose 15 gm 09/11/18 00:51 Glutose 40% Gel 15 Gm Tube PO 10/11/18 00:50 PRN PRN FOR BG 50-69 IN ALERT PATIENT Protocol Glucose 30 gm 09/11/18 00:51 Glutose 40% Gel 15 Gm Tube PO 10/11/18 00:50 PRN PRN FOR BG < 50 IN ALERT PATIENT Protocol Hydralazine HCl 20 mg 09/11/18 00:49 09/11/18 21:21 Apresoline Inj/Pf 20 Mg/1 Ml Sdv IV 10/11/18 00:48 20 mg Q4HP PRN Administration Give For Sbp > 160 / Dbp > 100 Insulin Human Regular 0 - 15 unit 09/11/18 00:49 09/11/18 12:48 Humulin R (Pyxis) Insulin 100 Unit/Ml 3ml SUBCUT 10/11/18 00:48 3 unit ACHSP PRN Administration PER PROTOCOL Protocol Isosorbide Mononitrate 30 mg 09/11/18 17:30 09/11/18 17:40 Imdur 30 Mg Tablet.Er PO 10/11/18 17:29 30 mg DAILY ERIKA Administration Started as per my recommendation. Magnesium Hydroxide 30 ml 09/11/18 00:26 Milk Of Magnesia 30 Ml Udcup PO 10/11/18 00:25 DAILYP PRN FOR CONSTIPATION Morphine Sulfate 0 mg 09/11/18 00:49 09/11/18 19:47 Morphine 10 Mg/Ml Inj IV 09/18/18 00:48 3 mg Q2HP PRN Administration Pain Per [facility] 5 point scale SD Protocol Nicotine 1 each 09/11/18 00:49 Nicoderm 21 Mg/24 Hr Transderm Patch TD 10/11/18 00:48 DAILYP PRN WITHDRAWAL SYMPTOMS Nitroglycerin 1 tab 09/11/18 00:49 Nitrostat 0.4 Mg (1/150 Gr) Tabs 25/Bottle SL 10/11/18 00:48 Q5MP PRN FOR CHEST PAIN Ondansetron HCl 4 mg 09/11/18 00:26 Zofran Inj/Pf 4 Mg/2 Ml Sdv IV 10/11/18 00:25 Q4HP PRN FOR NAUSEA/VOMITING Sodium Chloride 2.5 ml 09/11/18 06:00 09/11/18 21:25 Saline Flush 2.5 Ml Monoject Prefil Syrin IV 10/11/18 05:59 2.5 ml Q8 ERIKA Administration Zolpidem Tartrate 10 mg 09/11/18 00:26 Ambien 5 Mg Tablet PO 09/18/18 00:25 HSP PRN SLEEP OR INSOMNIA Discontinued Medications Generic Name Dose Route Start Last Admin Trade Name Freq PRN Reason Stop Dose Admin Hydromorphone HCl 1 mg 09/10/18 22:36 09/10/18 22:44 Dilaudid Inj/Pf 2 Mg/Ml Ampule IV 09/10/18 22:37 1 mg NOW ONE Administration Morphine Sulfate 5 mg 09/10/18 19:17 09/10/18 19:48 Morphine 10 Mg/Ml Inj IV 09/10/18 19:18 5 mg NOW ONE Administration Morphine Sulfate 5 mg 09/10/18 20:32 09/10/18 20:38 Morphine 10 Mg/Ml Inj IV 09/10/18 20:33 5 mg NOW ONE Administration Nitroglycerin 1 tab 09/10/18 19:18 09/10/18 20:24 Nitrostat 0.4 Mg (1/150 Gr) Tabs 25/Bottle SL 09/10/18 19:19 1 tab ASDIR ONE Administration Nitroglycerin 1 gm 09/10/18 20:32 09/10/18 20:39 Nitrol 2% Ointment 1gm Packet TP 09/10/18 20:33 1 gm NOW ONE Administration Ondansetron HCl 4 mg 09/10/18 19:17 09/10/18 19:48 Zofran Inj/Pf 4 Mg/2 Ml Sdv IV 09/10/18 19:18 4 mg NOW ONE Administration HOME MEDICATIONS: Amlodipine Besylate [Norvasc 10 mg Tablet] 10 mg PO DAILY 09/11/18 Atorvastatin Calcium [Lipitor 10 mg Tablet] 20 mg PO QHS 09/11/18 Metformin HCl [Metformin HCl ER] 1,000 mg PO BID 09/11/18 Nitroglycerin [Nitrostat 0.4 mg (1/150 Gr) Tabs 25/Bottle] 1 tab SL Q5MP PRN 09/11/18 Labs- Entire Visit 09/10/18 09/10/18 09/10/18 19:34 19:34 19:34 WBC 13.6 H RBC 5.98 H Hgb 15.9 Hct 47.7 MCV 80 MCH 26.6 L MCHC 33.3 RDW 14.1 H Plt Count 181 Seg Neutrophils % 67.0 Lymphocytes % 23.3 Monocytes % 6.4 Eosinophils % 2.3 Basophils % 1.0 Absolute Neutrophils 9.1 H Absolute Lymphocytes 3.2 Absolute Monocytes 0.9 Absolute Eosinophils 0.3 Absolute Basophils 0.1 Sodium 141.5 Potassium 4.2 Chloride 104 Carbon Dioxide 27 Anion Gap 11 BUN 10 Creatinine 1.00 Est GFR ( Amer) > 60 Est GFR (Non-Af Amer) > 60 Glucose 92 POC Glucose Hemoglobin A1c % Calcium 9.5 Magnesium Total Bilirubin 0.4 Direct Bilirubin 0.2 Neonat Total Bilirubin Not Reportable Neonat Direct Bilirubin Not Reportable Neonat Indirect Bili Not Reportable AST 25 ALT 43 Alkaline Phosphatase 61 Creatine Kinase 97 CK-MB (CK-2) 0.74 Troponin I < 0.012 Total Protein 7.0 Albumin 4.0 Triglycerides Cholesterol LDL Cholesterol Direct VLDL Cholesterol HDL Cholesterol TSH 09/11/18 09/11/18 09/11/18 01:30 01:30 07:35 WBC 12.8 H RBC 5.66 H Hgb 15.1 Hct 45.0 MCV 80 MCH 26.7 L MCHC 33.6 RDW 14.3 H Plt Count 118 L Seg Neutrophils % Lymphocytes % Monocytes % Eosinophils % Basophils % Absolute Neutrophils Absolute Lymphocytes Absolute Monocytes Absolute Eosinophils Absolute Basophils Sodium Potassium Chloride Carbon Dioxide Anion Gap BUN Creatinine Est GFR ( Amer) Est GFR (Non-Af Amer) Glucose POC Glucose Hemoglobin A1c % Calcium Magnesium Total Bilirubin Direct Bilirubin Neonat Total Bilirubin Neonat Direct Bilirubin Neonat Indirect Bili AST ALT Alkaline Phosphatase Creatine Kinase 84 CK-MB (CK-2) 0.77 Troponin I 0.013 Total Protein Albumin Triglycerides Cholesterol LDL Cholesterol Direct VLDL Cholesterol HDL Cholesterol TSH 09/11/18 09/11/18 09/11/18 07:35 07:35 07:35 WBC RBC Hgb Hct MCV MCH MCHC RDW Plt Count Seg Neutrophils % Lymphocytes % Monocytes % Eosinophils % Basophils % Absolute Neutrophils Absolute Lymphocytes Absolute Monocytes Absolute Eosinophils Absolute Basophils Sodium 139.5 Potassium 3.9 Chloride 104 Carbon Dioxide 24 Anion Gap 12 BUN 11 Creatinine 1.04 Est GFR ( Amer) > 60 Est GFR (Non-Af Amer) > 60 Glucose 100 POC Glucose Hemoglobin A1c % 6.3 H Calcium 9.0 Magnesium 2.0 Total Bilirubin Direct Bilirubin Neonat Total Bilirubin Neonat Direct Bilirubin Neonat Indirect Bili AST ALT Alkaline Phosphatase Creatine Kinase 75 CK-MB (CK-2) Troponin I Total Protein Albumin Triglycerides Cholesterol LDL Cholesterol Direct VLDL Cholesterol HDL Cholesterol TSH 3.75 09/11/18 09/11/18 09/11/18 07:35 07:35 08:13 WBC RBC Hgb Hct MCV MCH MCHC RDW Plt Count Seg Neutrophils % Lymphocytes % Monocytes % Eosinophils % Basophils % Absolute Neutrophils Absolute Lymphocytes Absolute Monocytes Absolute Eosinophils Absolute Basophils Sodium Potassium Chloride Carbon Dioxide Anion Gap BUN Creatinine Est GFR ( Amer) Est GFR (Non-Af Amer) Glucose POC Glucose 94 Hemoglobin A1c % Calcium Magnesium Total Bilirubin Direct Bilirubin Neonat Total Bilirubin Neonat Direct Bilirubin Neonat Indirect Bili AST ALT Alkaline Phosphatase Creatine Kinase CK-MB (CK-2) 0.86 Troponin I < 0.012 Total Protein Albumin Triglycerides 121 Cholesterol 110.37 LDL Cholesterol Direct 61 VLDL Cholesterol 24.0 HDL Cholesterol 36 L TSH 09/11/18 09/11/18 09/11/18 11:52 13:43 13:43 WBC RBC Hgb Hct MCV MCH MCHC RDW Plt Count Seg Neutrophils % Lymphocytes % Monocytes % Eosinophils % Basophils % Absolute Neutrophils Absolute Lymphocytes Absolute Monocytes Absolute Eosinophils Absolute Basophils Sodium Potassium Chloride Carbon Dioxide Anion Gap BUN Creatinine Est GFR ( Amer) Est GFR (Non-Af Amer) Glucose POC Glucose 175 H Hemoglobin A1c % Calcium Magnesium Total Bilirubin Direct Bilirubin Neonat Total Bilirubin Neonat Direct Bilirubin Neonat Indirect Bili AST ALT Alkaline Phosphatase Creatine Kinase 77 CK-MB (CK-2) 0.89 Troponin I < 0.012 Total Protein Albumin Triglycerides Cholesterol LDL Cholesterol Direct VLDL Cholesterol HDL Cholesterol TSH 09/11/18 09/11/18 16:37 21:24 WBC RBC Hgb Hct MCV MCH MCHC RDW Plt Count Seg Neutrophils % Lymphocytes % Monocytes % Eosinophils % Basophils % Absolute Neutrophils Absolute Lymphocytes Absolute Monocytes Absolute Eosinophils Absolute Basophils Sodium Potassium Chloride Carbon Dioxide Anion Gap BUN Creatinine Est GFR ( Amer) Est GFR (Non-Af Amer) Glucose POC Glucose 88 111 H Hemoglobin A1c % Calcium Magnesium Total Bilirubin Direct Bilirubin Neonat Total Bilirubin Neonat Direct Bilirubin Neonat Indirect Bili AST ALT Alkaline Phosphatase Creatine Kinase CK-MB (CK-2) Troponin I Total Protein Albumin Triglycerides Cholesterol LDL Cholesterol Direct VLDL Cholesterol HDL Cholesterol TSH Chest X-Ray 09/10/18 18:21 IMPRESSION: Low volume examination without acute abnormality of the lungs. No focal airspace opacity. Chest/Abdomen CTA 09/10/18 22:02 IMPRESSION: No acute pulmonary embolism. No acute pathology. Esophagus X-Ray 09/11/18 00:00 IMPRESSION: Tiny sliding hiatal hernia without reflux. EKG: Sinus rhythm, within normal limits. The patient's echocardiogram shows mild LVH, with normal left ventricular systolic function, and evidence of mild LV diastolic dysfunction. No significant valvular pathology seen. No pericardial effusion. He has mild pulmonary hypertension.. Impression/RECOMMENDATION: 1. Chest Wall Pain: Clearly Noncardiac. Patient Reassured. This is a visual x-ray excludes is esophageal spasm, and tertiary contractions/dysmotility of the esophagus. 2. Multiple risk factors for CAD, suggest age, hypertension, and hyperlipidemia, and tobacco abuse disorder. In view of the patient not being able to stay on aspirin would recommend adding a oral nitroglycerin preparation. Continue amlodipine. 3. Hypertension: Recommend adding an OTIS inhibitor, which will also be protective to his kidneys in view of his diabetes. 4. Diabetes mellitus type 2 [id number]: Continue metformin. Monitor patient's blood sugar. 5. Hyperlipidemia: Continue statin. 6. Von Willebrand's disease: At present seems to be stable. No bleeding complications. Avoid aspirin, and other antiplatelet/anticoagulants. 7. Morbid obesity: The patient will benefit from a diet and exercise program to lose weight. 8. Tobacco abuse: Tobacco cessation counseling given. 9. Symptoms suggestive of sleep apnea: Recommend a sleep study to be done as an outpatient. 10. ANXIETY: The patient does appear to be anxious. Consider adding anti- anxiolytic medication. Patient medications reviewed. Medications adjusted/added. Medical decision making is of moderate to high complexity. Management plan discussed with the attending physician on the case. The patient can be discharged home in the a.m., since there is no evidence of any acute coronary event/syndrome. Patient may benefit from anti-anxiolytic medication.
--- NOTE | 2018-09-12 23:07 | EKG REPORT ---
SEVERITY:- ABNORMAL ECG - SINUS RHYTHM NONSPECIFIC T ABNORMALITIES, LATERAL LEADS : Confirmed by: Garcia Emery 12-Sep-2018 23:05:48
--- NOTE | 2018-09-22 12:54 | PDOC DISCHARGE SUMMARY ---
General - Admit/Disc Date/PCP Admission Date/Primary Care Provider: 09/11/18 00:22 Discharge Date: 09/12/18 - Discharge Diagnosis (1) Chest pain Is this a current diagnosis for this admission?: Yes (2) Diabetes mellitus type 2 in obese Is this a current diagnosis for this admission?: Yes (3) Morbid obesity with BMI of 45.0-49.9, adult Is this a current diagnosis for this admission?: Yes (4) High blood pressure Is this a current diagnosis for this admission?: Yes - Additional Information Resuscitation Status: Full Code Discharge Diet: As Tolerated Discharge Activity: Activity As Tolerated Prescriptions: Isosorbide Mononitrate [Imdur 30 mg Tablet.er] 30 mg PO DAILY #30 tab.er.24h Home Medications: Amlodipine Besylate [Norvasc 10 mg Tablet] 10 mg PO DAILY 09/11/18 Atorvastatin Calcium [Lipitor 10 mg Tablet] 20 mg PO QHS 09/11/18 Metformin HCl [Metformin HCl ER] 1,000 mg PO BID 09/11/18 Nitroglycerin [Nitrostat 0.4 mg (1/150 Gr) Tabs 25/Bottle] 1 tab SL Q5MP PRN 09/11/18 Isosorbide Mononitrate [Imdur 30 mg Tablet.er] 30 mg PO DAILY #30 tab.er.24h 09/12/18 History of Present Illness History of Present Illness: MARK BOYD is a 43 year old male who presented to the emergency room with acute onset chest pain. Patient admits that he developed chest pain approximately 1630 on the day of admission with sudden onset while he was driving home. He admits that the pain is in the center portion of his chest and radiated directly through to his back. He describes the pain as a constant, sharp, squeezing pressure of severe intensity accompanied only by mild dyspnea/wheezing and remaining present for more than 2 hours until it resolved after he was treated in the emergency room. He further admits that he has had numerous similar episodes over the last several years but never this intense. Additionally he reports a negative stress test last March and a recent visit to the emergency room where he was treated for esophagitis with a GI cocktail which helped minimally but the pain eventually resolved. He further acknowledges that he has been under great deal of emotional stress recently and admits the cardiac associated risk factors of hypertension, diabetes mellitus type 2, morbid obesity, von Willebrand's disease and a 1 pack/day cigarette smoking habit. In the emergency room he was found to have negative cardiac enzymes and no evidence of acute cardiac ischemia or injury on his EKG. His further lab evaluation was essentially unremarkable. Patient was subsequently admitted for observation to the hospital for further evaluation and treatment and will have a cardiology consult with Dr. Carrillo as well as an echocardiogram during his inpatient observation status. Hospital Course Hospital Course: 43 y.o.M with a PMH of HTN, HLD, DM, Von Willebrand's disease and morbid obesity. He was admitted to the hospitalist service, with cardiology consulting, for chest pain. The patient's EKG revelaed NSR with evidence of LVH. Upon exam, the patient's L anterior chest pain was easily reproducible with palpation. S1 S2, no murmur/rub/gallop. Patient stated his pain had been "going on for years, and it was time to finally get checked out." ECHOcardiogram and barium swallow negative. Based on symptomology, the patient's chest wall pain was clearly Noncardiac. The patient does have multiple risk factors for CAD: age, hypertension, and hyperlipidemia, tobacco abuse disorder and super morbid obesity. In view of the patient not being able to stay on aspirin (due to Von Willebrand's disease) the patient was started on oral nitroglycerin, Imdur. The patient's blood pressure is very well controlled on amlodipine. The patient was discharged on hospital day #3 with a prescription for Imdur. He was advised to stop taking aspirin. No other changes were made to his medication regimen. The patient was instructed to lose weight, stop smoking and to follow up at the [facility] to continue his workup. Physical Exam Vital Signs: Temp Pulse Resp BP Pulse Ox 97.8 F 74 16 125/76 94 09/12/18 10:16 09/12/18 10:16 09/12/18 10:16 09/12/18 10:16 09/12/18 10:16 Results Laboratory Results: 09/11/18 07:35 09/11/18 07:35 09/10/18 09/10/18 09/11/18 19:34 19:34 01:30 Creatine Kinase 97 84 CK-MB (CK-2) 0.74 Troponin I < 0.012 09/11/18 09/11/1809/11/19 01:30 07:35 07:35 Creatine Kinase 75 CK-MB (CK-2) 0.77 0.86 Troponin I 0.013 < 0.012 09/11/18 09/11/18 13:43 13:43 Creatine Kinase 77 CK-MB (CK-2) 0.89 Troponin I < 0.012 Impressions: Chest X-Ray 09/10/18 18:21 IMPRESSION: Low volume examination without acute abnormality of the lungs. No focal airspace opacity. Chest/Abdomen CTA 09/10/18 22:02 IMPRESSION: No acute pulmonary embolism. No acute pathology. Esophagus X-Ray 09/11/18 00:00 IMPRESSION: Tiny sliding hiatal hernia without reflux. Status: Imported from PACS Qualifiers - * PATIENT BEING DISCHARGED WITH ANY OF THE FOLLOWING DIAGNOSIS: No
== END 2018-09-12 11:11 | disposition home or self-care (01) ==
LOC: ER 17:52 → EH 09-11 00:22 → 3N 09-11 06:49
PROVIDERS: ADMIT Emergency Medicine; ATTEND Emergency Medicine
PROC: HZ31ZZZ Individual Counseling for Substance Abuse Treatment, Behavioral (ICD-10-PCS; principal; 2018-09-11)
DX: R07.89 Other chest pain (principal); E11.9 Type 2 diabetes mellitus without complications; E66.01 Morbid (severe) obesity due to excess calories; Z68.42 Body mass index [BMI] 45.0-49.9, adult; I10 Essential (primary) hypertension; F17.210 Nicotine dependence, cigarettes, uncomplicated; D68.0 Von Willebrand disease; E78.5 Hyperlipidemia, unspecified; R06.2 Wheezing; R06.00 Dyspnea, unspecified; R53.83 Other fatigue; R53.1 Weakness; R01.1 Cardiac murmur, unspecified; F41.9 Anxiety disorder, unspecified; R60.0 Localized edema; Z79.899 Other long term (current) drug therapy; Z79.84 Long term (current) use of oral hypoglycemic drugs; Z82.49 Family history of ischemic heart disease and other diseases of the circulatory system
CPT/HCPCS: 93005 ×2; 96376; 99285; 96374; 96375; 36415 ×2; 82553 ×2; 82962 ×2; 82550 ×2; 83735; 84443; 85025; 85027; 80048; 80053; 84484 ×2; 83036; 80061; 93306; 71046; 74220; 71275; 93010 ×2; 94640; 99406; G0378 ×4; J0360; J2270 ×3; J1170; J1815; J3490 ×2; J2405